=== PATIENT | male | born 1960 | race Two or more races ===

== ENCOUNTER 2025-05-14 17:20 | Inpatient (IN) | payer OTHER ==
[~2025-05-14] VITALS: Ht 172.7 cm; Wt 68.5 kg
--- NOTE | 2025-05-14 19:11 | ED.PDOC ---
History of Present Illness HPI Comments 65 y/o M, with a history of SBO, presents with c/c of intermittent abdominal pain. Patient is a poor historian. Endorses on 3x month history of on-and-off pain. Reports on additional associated symptoms of nausea, vomiting, constipation, poor appetite, and generalized weakness, which started 9x days ago. Denies any bloody or bilious vomitus, diarrhea, urinary symptoms, chest pain, shortness of breath, or further associated symptoms. Chief Complaint: Abdominal Pain Time Seen by MD: 18:30 Reviewed Notes: Nurses Notes, Medications, Allergies Allergies: Coded Allergies: Aspirin (Verified Allergy, Unknown, 05/14/25) Information Source: Patient Mode of Arrival: Ambulatory Severity: Moderate Timing: Months Duration: Intermittent Prehospital treatment: None Past Medical History Past Medical History (Other): SBO Surgical History: Denies all surgeries Family History Family History: Unknown Social History Smoker: Cigarettes Alcohol: Denies ETOH Use Drugs: Denies Drug Use Lives In: Home All Other Systems: Reviewed and Negative (Comprehensive systems review obtained and negative except for what is stated in the HPI.) Physical Exam General Appearance: Moderate Distress HEENT: Normal ENT Inspection, Pharynx Normal, TMs Normal Neck: Full Range of Motion, Non-Tender, Normal, Normal Inspection Respiratory: Chest Non-Tender, Lungs Clear, No Accessory Muscle Use, No Respiratory Distress, Normal Breath Sounds Cardiovascular: No Edema, No JVD, No Murmur, No Gallop, Normal Peripheral Pulses, Regular Rate/Rhythm Breast Exam: Deferred Gastrointestinal: No Organomegaly, Non Tender, No Pulsatile Mass, Normal Bowel Sounds, Soft Genitalia: Deferred Pelvic: Deferred Rectal: Deferred Extremities: No calf tenderness, Normal capillary refill, Non-tender, No pedal edema Musculoskeletal : Apperance: Normal Neurologic: Alert, chairperson anesthesiology II-XII nml as Tested, No Motor Deficits, Normal Affect, Normal Mood, No Sensory Deficits Cerebellar Function: NOT DONE Reflexes: NOT DONE Skin: Dry, Normal Color, Warm Peripheral Pulses: 3+ Radial (R), 3+ Radial (L) Lymphatic: No Adenopathy Was a procedure done? Was a procedure done?: No Differential Dx Considerations may include: Gastritis, gastroenteritis, GERD, cholelithiasis cholecystitis, bowel obstruction, diverticulitis, among others X-Ray, Labs, Meds, VS Vital Signs Date Time Temp Pulse Resp B/P (MAP) Pulse Ox O2 Delivery O2 Flow Rate FiO2 05/14/25 19:33 98.0 88 16 90/60 (70) 95 98.0 05/14/25 17:23 98.1 105 16 98/57 95 98.1 Lab Test 05/14/25 19:11 Range/Units White Blood Count 20.8 H 4.4-10.8 10^3/uL Red Blood Count 4.10 L 4.5-5.90 10^6/uL Hemoglobin 13.6 13.5-17.5 g/dL Hematocrit 38.2 L 41.0-53.0 % Mean Corpuscular Volume 93.1 80.0-100.0 fL Mean Corpuscular Hemoglobin 33.2 H 28.0-32.0 pg Mean Corpuscular Hemoglobin Concent 35.6 32.0-36.0 g/dL Red Cell Distribution Width 12.8 11.8-14.3 % Platelet Count 450 140-450 10^3/uL Mean Platelet Volume 6.9 6.9-10.8 fL Neutrophils (%) (Auto) 82.4 H 37.0-80.0 % Lymphocytes (%) (Auto) 10.3 10.0-50.0 % Monocytes (%) (Auto) 6.2 0.0-12.0 % Eosinophils (%) (Auto) 0.4 0.0-7.0 % Basophils (%) (Auto) 0.7 0.0-2.0 % Neutrophils # (Auto) 17.1 H 1.6-8.6 10 ^3/uL Lymphocytes # (Auto) 2.1 0.4-5.4 10 ^3/uL Monocytes # (Auto) 1.3 0-1.3 10 ^3/uL Eosinophils # (Auto) 0.1 0-0.8 10 ^3/uL Basophils # (Auto) 0.2 0-0.2 10 ^3/uL Nucleated Red Blood Cells 0.1 % Sodium Level 134 L 136-145 mmol/L Potassium Level 3.8 3.5-5.1 mmol/L Chloride Level 87 L 98-107 mmol/L Carbon Dioxide Level 33 H 20-31 mmol/L Anion Gap 14 5-15 Blood Urea Nitrogen 47 H 9-23 mg/dL Creatinine 2.09 H 0.700-1.30 mg/dL Glomerular Filtration Rate Calc 35 >90 mL/min BUN/Creatinine Ratio 22.5 H 10.0-20.0 Serum Glucose 115 H 74-106 mg/dL Calcium Level 9.7 8.7-10.4 mg/dL Current Medications Medications (Trade) Dose Ordered Sig/Taiwo Route Start Time Stop Time Status Last Admin Pantoprazole Sodium (Protonix) 40 mg ONCE ONCE IV 05/14/25 22:15 05/14/25 22:33 DC 05/15/25 01:22 Ceftriaxone Sodium 50 ml @ 100 mls/hr ONCE ONCE IV 05/14/25 22:45 05/14/25 23:14 DC 05/15/25 01:39 Metronidazole 100 ml @ 100 mls/hr ONCE ONCE IV 05/14/25 22:45 05/14/25 23:44 DC 05/15/25 01:22 [place] [id number] Ph: [phone] DIAGNOSTIC IMAGING Diagnostic Imaging Report : [id number] Signed PATIENT: CLAUDIA CONNORS ACCT: [id number] UNIT: [id number] : 1960 LOC: ER ROOM / BED: / AGE / SEX: 65 / M ADM STATUS: REG ER SERVICE 52 ORDERING PHYSICIAN: CLAUDIA JEFFERS MD PROCEDURE(s): ABPL - CT AB PEL WO CON-NO ORAL OR IV REASON: sbo ORDER NUMBER(s): [id number], ACCESSION NUMBER(s): [id number] Exam: CT CT AB PEL WO CON-NO ORAL OR IV History: sbo Comparison Study: None Technique: Multidetector spiral CT of the abdomen was performed from lung bases to pubic symphysis. Imaging was performed without IV contrast. Axial, coronal and sagittal multiplanar reformats were obtained from the axial data set by the technologist. Radiation Dose : 1. Abdomen/Pelvis: CTDIvol 6.32 mGy, DLP 315 mGy*cm. Findings: Evaluation of solid organs is limited due to lack of intravenous contrast use. Lung Bases: Left upper lobe pneumonia. Liver: The liver is normal in size. No focal lesions. Gallbladder and Biliary Tree: Unremarkable Spleen: Unremarkable Pancreas: The pancreas is grossly normal in appearance. Adrenal Glands: Unremarkable Kidneys: Right renal nephrolithiasis without hydronephrosis. Bladder: Grossly unremarkable for degree of distention. Bowel: The stomach is grossly normal in appearance. Multiple abnormally dilated loops of small bowel are seen throughout the abdomen with probable transition point in the lower midline abdomen, suggestive of small-bowel obstruction The appendix is not visualized; however, no secondary findings of acute appendicitis identified. Ascites: Absent Lymphadenopathy: No mesenteric, retroperitoneal or periportal lymphadenopathy. Abdominal Wall and Mesentery: Unremarkable. Vasculature: The visualized abdominal aorta is normal in size and caliber. Evaluation of abdominal and pelvic vessels is limited due to lack of intravenous contrast. Pelvic Organs: Unremarkable Musculoskeletal: No aggressive focal bony lesions, acute fractures or dislocation. Degenerative changes are seen throughout the lumbar spine IMPRESSION: 1. Small-bowel obstruction with probable transition point in the lower midline abdomen. 2. Left upper lobe pneumonia. Radiation optimization: All CT scans at this facility use at least one of these dose optimization techniques: automated exposure control mA and/or kV adjustment per patient size (includes targeted exams where dose is matched to clinical indication) or iterative reconstruction. ATED BY: VINCENZO OGDEN MD DICTATED DATE/TIME: 05/14/251946 SIGNED BY: VINCENZO OGDEN MD SIGNED DATE/TIME: 05/14/251946 CC: Patient alert. Vitals stable. States that his lost lot of weight. Saturation pristine. Continue monitoring. Time of 1ST Reevaluation: 19:00 Reevaluation 1ST: Unchanged Patient Education/Counseling: Diagnosis, Treatment Family Education/Counseling: No Family Present SEPSIS Sepsis Screen Date sepsis recognized/suspect: May 14, 2025 Time Sepsis recognized/suspect: 1723 Recent Procedure: No On Antibiotic Therapy: No Respiratory Rate >20: No Heart Rate >90: Yes Temp<36 C (96.8 F) or >38.3 C: No SBP <90 or MAP <65 mmHG: No New Acute Mental Status Change: No Is the patient on CPAP, BIPAP,: No Physician Orders Ct Ab Pel Wo Con-No Oral Or Iv (05/14/25 18:53) * Surgical Consult (05/14/25 ) Allergies (05/14/25 22:13) Code Status (05/14/25 22:13) Sodium Chloride 0.9% (05/14/25 22:15) Oxygen Per Hour (05/14/25 22:13) Hydrocodone-Acet 5/325mg Tab ([place] (05/14/25 22:15) Ondansetron Hcl (Zofran) (05/14/25 22:15) Complete Blood Count (05/15/25 04:00) Comprehensive Metabolic Panel (05/15/25 04:00) Npo (Nothing By Mouth) Diet (05/15/25 Breakfast) Condition: Serious (05/14/25 22:13) Acetaminophen Tablet (Tylenol Tablet) (05/14/25 22:15) Bedrest With Bathroom Privileg (05/14/25 22:13) Morphine Sulfate Injection (05/14/25 22:15) Sequential Compression Device (05/14/25 ) Pantoprazole (Protonix) (05/15/25 10:00) Ceftriaxone 1gm/50ml (Rocephin) (05/15/25 09:00) Metronidazole 500mg/100ml (Flagyl 500mg/ (05/15/25 06:00) Vital Signs Date Time Temp Pulse Resp B/P (MAP) Pulse Ox O2 Delivery O2 Flow Rate FiO2 05/14/25 19:33 98.0 88 16 90/60 (70) 95 98.0 05/14/25 17:23 98.1 105 16 98/57 95 98.1 Laboratory Tests Test 05/14/25 19:11 White Blood Count 20.8 10^3/uL (4.4-10.8) H Medications Medications Dose Ordered Sig/Taiwo Route Start Time Stop Time Status Last Admin Dose Admin Ceftriaxone Sodium 50 ml @ 100 mls/hr ONCE ONCE IV 05/14/25 22:45 05/14/25 23:14 DC 05/15/25 01:39 Metronidazole 100 ml @ 100 mls/hr ONCE ONCE IV 05/14/25 22:45 05/14/25 23:44 DC 05/15/25 01:22 Pantoprazole Sodium 40 mg ONCE ONCE IV 05/14/25 22:15 05/14/25 22:33 DC 05/15/25 01:22 Departure 1 Departure Time of Disposition: 19:16 Impression: Primary Impression: Failure to thrive Qualified Codes: R62.7 - Adult failure to thrive Disposition: ADMITTED INPATIENT Admit to: Med Surg Condition: Guarded Critical Care Note Critical Care Time?: No Stability Stability form required: No Heart Score Heart Score: Heart Score Response (Comments) Value History N/A 0 EKG N/A 0 Age N/A 0 Risk Factors N/A 0 Troponin N/A 0 Total 0 I personally scribed for CLAUDIA JEFFERS MD ([email or web address]) on 05/14/25 at 19:11. Electronically submitted by Bobby Martinez [email or web address]). I personally scribed for CLAUDIA JEFFERS MD ([email or web address]) on 05/15/25 at 02:45. Electronically submitted by Bobby Martinez [email or web address]). CLAUDIA JEFFERS MD May 14, 2025 19:11
[2025-05-14 19:27] LABS: Hematocrit 38.2 % (41.0-53.0); Mean Corpuscular Volume 93.1 fL (80.0-100.0)
[2025-05-14 19:28] LABS: Hemoglobin 13.6 g/dL (13.5-17.5); Mean Corpuscular Hemoglobin 33.2 pg (28.0-32.0); Nucleated Red Blood Cells % 0.1 %
[2025-05-14 19:38] LABS: Potassium 3.8 mmol/L (3.5-5.1)
[2025-05-14 19:39] LABS: Anion Gap 14 (5-15); Calcium 9.7 mg/dL (8.7-10.4)
[2025-05-14 19:41] LABS: Carbon Dioxide 33 mmol/L (20-31); Chloride 87 mmol/L (98-107); Sodium 134 mmol/L (136-145)
[2025-05-14 19:44] LABS: BUN/Creatinine Ratio 22.5 (10.0-20.0)
[2025-05-14 19:47] LABS: Blood Urea Nitrogen 47 mg/dL (9-23); Glucose 115 mg/dL (74-106)
--- NOTE | 2025-05-14 19:49 | DVH ---
Exam: CT CT AB PEL WO CON-NO ORAL OR IV History: sbo Comparison Study: None Technique: Multidetector spiral CT of the abdomen was performed from lung bases to pubic symphysis. Imaging was performed without IV contrast. Axial, coronal and sagittal multiplanar reformats were ob tained from the axial data set by the technologist. Radiation Dose : 1. Abdomen/Pelvis: CTDIvol 6.32 mGy, DLP 315 mGy*cm. Findings: Evaluation of solid organs is limited due to lack of intravenous contrast use. Lung Bases: Left upper lobe pneumonia. Liver: The liver is normal in size. No focal lesions. Gallbladder and Biliary Tree: Unremarkable Spleen: Unremarkable Pancreas: The pancreas is grossly normal in appearance. Adrenal Glands: Unremarkable Kidneys: Right renal nephrolithiasis without hydronephrosis. Bladder: Grossly unremarkable for degree of distention. Bowel: The stomach is grossly normal in appearance. Multiple abnormally dilated loops of small bowel are seen throughout the abdomen with probable transition point in the lower midline abdomen, suggesti ve of small-bowel obstruction The appendix is not visualized; however, no secondary findings of acut e appendicitis identified. Ascites: Absent Lymphadenopathy: No mesenteric, retroperitoneal or periportal lymphadenopathy. Abdominal Wall and Mesentery: Unremarkable. Vasculature: The visualized abdominal aorta is normal in size and caliber. Evaluation of abdominal a nd pelvic vessels is limited due to lack of intravenous contrast. Pelvic Organs: Unremarkable Musculoskeletal: No aggressive focal bony lesions, acute fractures or dislocation. Degenerative barker es are seen throughout the lumbar spine IMPRESSION: 1. Small-bowel obstruction with probable transition point in the lower midline abdomen. 2. Left upper lobe pneumonia. Radiation optimization: All CT scans at this facility use at least one of these dose optimization sage hniques: automated exposure control mA and/or kV adjustment per patient size (includes targeted exam s where dose is matched to clinical indication) or iterative reconstruction.
[2025-05-14] MEDS ORDERED: HYDROcodone-ACET 5/325MG TAB PO PRN (22:15)
[2025-05-14] MEDS: SODIUM CHLORIDE 0.9% 1,000 ML IV SCH (23:16)
--- NOTE | 2025-05-14 23:24 | DVHHP2 ---
History of Present Illness Reason for Visit: Small-bowel obstruction History of Present Illness The patient is a 65-year-old male with past medical history of small-bowel obstruction who presented to [facility] ED with complaint of abdominal pain for the past 3 months. Patient reports he has been experiencing intermittent abdominal pain, associated with nausea, vomiting, constipation, poor appetite, and generalized weakness. Patient was seen and evaluated in the ED, laboratory data shows WBC 20.8, platelets 450, sodium 134, potassium 3.8, BUN 47, creatinine 2.09, glucose 115, calcium 9.7, blood pressure 90/60, heart rate 88, temperature 98.0 F, O2 saturation 96% on room air. Abdomen/pelvis CT revealing small bowel obstruction with probable transition point in the lower midline abdomen, left upper lobe pneumonia. Please see medication orders section in the computer. On my assessment, patient denied chest pain, no headache, no dizziness, no shortness of breaths, no diarrhea, nausea, vomiting, fever, no chills. Patient was admitted for further evaluation and medical management. Past Medical History Small-bowel obstruction Past Surgical History Denies all surgeries Family History Reviewed, noncontributory to the management of this case. Past Social History The patient lives at home, denies smoking, alcohol or illicit drugs abuse. Review of Systems Constitutional: Yes: Weakness; No: Fever, Chills, Sweats, Malaise, Other Eyes: No: Pain, Vision change, Conjunctivae inflammation, Eyelid inflammation, Other, Redness ENT: No: Ear pain, Ear discharge, Nose pain, Nose discharge, Nose congestion, Mouth pain, Mouth swelling, Throat pain, Throat swelling, Other Respiratory: No: Cough, Dry, Shortness of breath, SOB with excertion, Wheezing, Hemoptysis, Pleuritic Pain, Sputum, Wheezing, Other Cardiovascular: No: Chest Pain, Palpitations, Orthopnea, Paroxysmal Noc. Dyspnea, Edema, Lt Headedness, Other Gastrointestinal: Nausea, Abdominal Pain; No: Vomiting, Diarrhea, Constipation, Melena, Hematochezia, Other Genitourinary: No Dysuria, No Frequency, No Incontinence, No Hematuria, No Retention, No Other Musculoskeletal: No: other, neck pain, shoulder pain, arm pain, back pain, hand pain, leg pain, foot pain Skin: No: Rash, Lesions, Jaundice, Bruising, Other Neurological: No: Weakness, Numbness, Incoordination, Change in speech, Confusion, Seizures, Other Allergies: Coded Allergies: Aspirin (Verified Allergy, Unknown, 05/14/25) Medications Current Medications Medications Dose Ordered Sig/Taiwo Route Start Time Stop Time Status Last Admin Dose Admin Sodium Chloride 1,000 ml @ 60 mls/hr [id number] IV 05/14/25 22:15 Acetaminophen/ Hydrocodone Bitart 1 tab Q4HP PRN PO 05/14/25 22:15 Ondansetron HCl 4 mg Q4HP PRN IV 05/14/25 22:15 Acetaminophen 650 mg Q6HP PRN PO 05/14/25 22:15 Morphine Sulfate 2 mg Q4HPRN PRN IV 05/14/25 22:15 Pantoprazole Sodium 40 mg DAILY IV 05/15/25 10:00 Ceftriaxone Sodium 50 ml @ 100 mls/hr DAILY@09 IV 05/15/25 09:00 Metronidazole 100 ml @ 100 mls/hr Q8HR IV 05/15/25 06:00 Exam Vital Signs Vital Signs Date Time Temp Pulse Resp B/P (MAP) Pulse Ox O2 Delivery O2 Flow Rate FiO2 05/14/25 19:33 98.0 88 16 90/60 (70) 95 98.0 General Appearance: Alert, Oriented X3, Cooperative, No acute distress HEENT: Atraumatic, PERRLA, EOMI, Mucous membr. moist/pink Respiratory: Normal air movement Cardiovascular: Regular rate, Normal S1, Normal S2, No murmurs Abdominal: Normal bowel sounds, Soft, No hepatospenomegaly, No masses, Other (Reports tenderness) Extremities: No clubbing, No cyanosis, No edema, Normal pulses, No tenderness/swelling Skin: No rashes, No breakdown, No significant lesion Neuro: Normal speech, Normal tone, Sensation intact, Cranial nerves 3-12 NL, Reflexes 2+, Other (Generalized weakness) Psych/Mental Status: Mental status NL, Mood NL Labs/Xrays Labs Test 05/14/25 19:11 Range/Units White Blood Count 20.8 H 4.4-10.8 10^3/uL Red Blood Count 4.10 L 4.5-5.90 10^6/uL Hemoglobin 13.6 13.5-17.5 g/dL Hematocrit 38.2 L 41.0-53.0 % Mean Corpuscular Volume 93.1 80.0-100.0 fL Mean Corpuscular Hemoglobin 33.2 H 28.0-32.0 pg Mean Corpuscular Hemoglobin Concent 35.6 32.0-36.0 g/dL Red Cell Distribution Width 12.8 11.8-14.3 % Platelet Count 450 140-450 10^3/uL Mean Platelet Volume 6.9 6.9-10.8 fL Neutrophils (%) (Auto) 82.4 H 37.0-80.0 % Lymphocytes (%) (Auto) 10.3 10.0-50.0 % Monocytes (%) (Auto) 6.2 0.0-12.0 % Eosinophils (%) (Auto) 0.4 0.0-7.0 % Basophils (%) (Auto) 0.7 0.0-2.0 % Neutrophils # (Auto) 17.1 H 1.6-8.6 10 ^3/uL Lymphocytes # (Auto) 2.1 0.4-5.4 10 ^3/uL Monocytes # (Auto) 1.3 0-1.3 10 ^3/uL Eosinophils # (Auto) 0.1 0-0.8 10 ^3/uL Basophils # (Auto) 0.2 0-0.2 10 ^3/uL Nucleated Red Blood Cells 0.1 % Sodium Level 134 L 136-145 mmol/L Potassium Level 3.8 3.5-5.1 mmol/L Chloride Level 87 L 98-107 mmol/L Carbon Dioxide Level 33 H 20-31 mmol/L Anion Gap 14 5-15 Blood Urea Nitrogen 47 H 9-23 mg/dL Creatinine 2.09 H 0.700-1.30 mg/dL Glomerular Filtration Rate Calc 35 >90 mL/min BUN/Creatinine Ratio 22.5 H 10.0-20.0 Serum Glucose 115 H 74-106 mg/dL Calcium Level 9.7 8.7-10.4 mg/dL PATIENT: CLAUDIA CONNORS ACCT: [id number] UNIT: [id number] : 1960 LOC: ER ROOM / BED: / AGE / SEX: 65 / M ADM STATUS: REG ER SERVICE 1470 ORDERING PHYSICIAN: CLAUDIA JEFFERS MD PROCEDURE(s): ABPL - CT AB PEL WO CON-NO ORAL OR IV REASON: sbo ORDER NUMBER(s): [id number], ACCESSION NUMBER(s): [id number] Exam: CT CT AB PEL WO CON-NO ORAL OR IV History: sbo Comparison Study: None Technique: Multidetector spiral CT of the abdomen was performed from lung bases to pubic symphysis. Imaging was performed without IV contrast. Axial, coronal and sagittal multiplanar reformats were obtained from the axial data set by the technologist. Radiation Dose: 1. Abdomen/Pelvis: CTDIvol 6.32 mGy, DLP 315 mGy*cm. Findings: Evaluation of solid organs is limited due to lack of intravenous contrast use. Lung Bases: Left upper lobe pneumonia. Liver: The liver is normal in size. No focal lesions. Gallbladder and Biliary Tree: Unremarkable Spleen: Unremarkable Pancreas: The pancreas is grossly normal in appearance. Adrenal Glands: Unremarkable Kidneys: Right renal nephrolithiasis without hydronephrosis. Bladder: Grossly unremarkable for degree of distention. Bowel: The stomach is grossly normal in appearance. Multiple abnormally dilated loops of small bowel are seen throughout the abdomen with probable transition point in the lower midline abdomen, suggestive of small-bowel obstruction The appendix is not visualized; however, no secondary findings of acute appendicitis identified. Ascites: Absent Lymphadenopathy: No mesenteric, retroperitoneal or periportal lymphadenopathy. Abdominal Wall and Mesentery: Unremarkable. Vasculature: The visualized abdominal aorta is normal in size and caliber. Evaluation of abdominal and pelvic vessels is limited due to lack of intravenous contrast. Pelvic Organs: Unremarkable Musculoskeletal: No aggressive focal bony lesions, acute fractures or disl ocation. Degenerative changes are seen throughout the lumbar spine IMPRESSION: 1. Small-bowel obstruction with probable transition point in the lower midline abdomen. 2. Left upper lobe pneumonia. SEPSIS Sepsis Screen Date sepsis recognized/suspect: May 14, 2025 Time Sepsis recognized/suspect: 1723 Recent Procedure: No On Antibiotic Therapy: No Respiratory Rate >20: No Heart Rate >90: Yes Temp<36 C (96.8 F) or >38.3 C: No SBP <90 or MAP <65 mmHG: No New Acute Mental Status Change: No Is the patient on CPAP, BIPAP,: No Physician Orders Ct Ab Pel Wo Con-No Oral Or Iv (05/14/25 18:53) * Surgical Consult (05/14/25 ) Allergies (05/14/25 22:13) Code Status (05/14/25 22:13) Sodium Chloride 0.9% (05/14/25 22:15) Oxygen Per Hour (05/14/25 22:13) Hydrocodone-Acet 5/325mg Tab ([place] (05/14/25 22:15) Ondansetron Hcl (Zofran) (05/14/25 22:15) Complete Blood Count (05/15/25 04:00) Comprehensive Metabolic Panel (05/15/25 04:00) Npo (Nothing By Mouth) Diet (05/15/25 Breakfast) Condition: Serious (05/14/25 22:13) Acetaminophen Tablet (Tylenol Tablet) (05/14/25 22:15) Bedrest With Bathroom Privileg (05/14/25 22:13) Morphine Sulfate Injection (05/14/25 22:15) Sequential Compression Device (05/14/25 ) Pantoprazole (Protonix) (05/15/25 10:00) Ceftriaxone 1gm/50ml (Rocephin) (05/15/25 09:00) Metronidazole 500mg/100ml (Flagyl 500mg/ (05/15/25 06:00) Metronidazole 500mg/100ml (Flagyl 500mg/ (05/14/25 22:45) Vital Signs Date Time Temp Pulse Resp B/P (MAP) Pulse Ox O2 Delivery O2 Flow Rate FiO2 05/14/25 19:33 98.0 88 16 90/60 (70) 95 98.0 05/14/25 17:23 98.1 105 16 98/57 95 98.1 Laboratory Tests Test 05/14/25 19:11 White Blood Count 20.8 10^3/uL (4.4-10.8) H Assessment/Plan Assessment/Plan Acute abdominal pain Small-bowel obstruction Leukocytosis, unspecified Pneumonia, unspecified organism Generalized weakness Plan 1. Admit to telemetry unit 2. Breathing treatment 3. Pain control management 4. IV antibiotic management 5. Management of fluids and electrolytes 6. Consultation for surgery/hospitalist 7. Diagnostic test abdomen/pelvis CT 8. DVT prophylaxis-on SCDs 9. Repeat labs CBC, CMP in a.m. 10. Home medication reviewed and reconciled 11. Continue with current medical management 12. Treatment plan discussed with patient and RN. Patient verbalized understanding. Plan discussed with: Patient, Other (RN) My Orders Orders - DHAVAL PERDOMO DNP Procedure Category Date Status Time * Surgical Consult CONS 05/14/25 Transmitted Allergies SAMUEL 05/14/25 In Process 22:13 Code Status CODE 05/14/25 Transmitted 22:13 Sodium Chloride 0.9% PHA 05/14/25 In Process 22:15 Oxygen Per Hour RT 05/14/25 Transmitted 22:13 Hydrocodone-Acet PHA 05/14/25 In Process 5/325mg Tab ([place] 22:15 Ondansetron Hcl PHA 05/14/25 In Process (Zofran) 22:15 Complete Blood Count LAB 05/15/25 Verified 04:00 Comprehensive LAB 05/15/25 Verified Metabolic Panel 04:00 Npo (Nothing By DIET 05/15/25 Transmitted Mouth) Diet Breakfast Condition: Serious SAMUEL 05/14/25 In Process 22:13 Acetaminophen Tablet PHA 05/14/25 In Process (Tylenol Tablet) 22:15 Bedrest With Bathroom SAMUEL 05/14/25 In Process Privileg 22:13 Morphine Sulfate PHA 05/14/25 In Process Injection 22:15 Sequential SAMUEL 05/14/25 In Process Compression Device Pantoprazole PHA 05/15/25 In Process (Protonix) 10:00 Ceftriaxone 1gm/50ml PHA 05/15/25 In Process (Rocephin) 09:00 Metronidazole PHA 05/15/25 In Process 500mg/100ml (Flagyl 06:00 Metronidazole PHA 05/14/25 In Process 500mg/100ml (Flagyl 22:45 Problem List: (1) Acute abdominal pain (2) Small bowel obstruction (3) Leukocytosis, unspecified (4) Pneumonia, unspecified organism (5) Generalized weakness Date of Service: May 14, 2025 Billing Provider: DHAVAL PERDOMO DNP Common Visit Codes: 69965-SROICSD INP/OBS CARE (HIGH) DHAVAL PERDOMO DNP May 14, 2025 23:24
[2025-05-14] MEDS ORDERED: MORPHINE SULFATE INJ 2 MG/ml SYRG IV PRN (23:30)
[2025-05-14] MEDS ORDERED: NITROGLYCERIN 0.4 MG SL TAB SL PRN (23:30)
[2025-05-14 23:53] VITALS: PULSE 86; RESP 16; O2SAT 95
[2025-05-15] VITALS (23 sets, daily range): BP systolic 84–136; BP diastolic 49–89; PULSE 54–90; RESP 10–20; TEMP 97.7–98.1; O2SAT 87–100
[2025-05-15] MEDS: PANTOPRAZOLE 40 MG/10 ML VIAL INJ IV ONE (01:22)
[2025-05-15 04:05] LABS: Alanine Aminotransferase 15 U/L (7-40); Albumin 3.7 g/dL (3.2-4.8); Alkaline Phosphatase 60 U/L (46-116); Anion Gap 16 (5-15); BUN/Creatinine Ratio 17.7 (10.0-20.0); Calcium 9.0 mg/dL (8.7-10.4); Carbon Dioxide 29 mmol/L (20-31); Glucose 103 mg/dL (74-106); Total Protein 6.2 g/dL (5.7-8.2)
[2025-05-15 04:06] LABS: Hematocrit 35.8 % (41.0-53.0); Hemoglobin 12.2 g/dL (13.5-17.5); Mean Corpuscular Hemoglobin 32.8 pg (28.0-32.0); Mean Corpuscular Volume 95.9 fL (80.0-100.0); Nucleated Red Blood Cells % 0.0 %
[2025-05-15 04:07] LABS: Bilirubin, Total 0.3 mg/dL (0.2-1.0); Blood Urea Nitrogen 39 mg/dL (9-23); Chloride 89 mmol/L (98-107); Potassium 3.4 mmol/L (3.5-5.1); Sodium 134 mmol/L (136-145)
[2025-05-15] MEDS: SODIUM CHLORIDE 0.9% 500 ML IV ONE (04:15)
[2025-05-15] MEDS: NOREPINEPHRINE 8 MG/250ML KIT 250 ML IV SCH (07:15)
[2025-05-15] MEDS: NOREPINEPHRINE 8 MG/250ML KIT 250 ML IV ONE (07:28)
[2025-05-15] MEDS: AZITHROMYCIN 500MG/ 250ML 250 ML IV ONE (07:57)
[2025-05-15] MEDS: PANTOPRAZOLE 40 MG/10 ML VIAL INJ IV SCH (08:16)
--- NOTE | 2025-05-15 10:41 | DVH ---
INDICATION: RULE OUT CARDIOPULMONARY DX TECHNIQUE: Frontal view of the chest. COMPARISON: None FINDINGS: . The heart and mediastinal contours are grossly unremarkable. There is no evidence of pleural disea se. The lungs are clear. The bony structures of the chest are intact without fracture. IMPRESSION: 1. Mild pulmonary edema
[2025-05-15 11:19] LABS: INR 0.97 (0.9-1.15); Partial Thromboplastin Time 28.0 SEC (24.5-34.5); Prothrombin Time 10.3 sec (9.3-11.8)
--- NOTE | 2025-05-15 11:40 | DVHINCON2 ---
Date of service: May 15, 2025 Allergies: Coded Allergies: Aspirin (Verified Allergy, Unknown, 05/14/25) Current Medications Current Medications Medications (Trade) Dose Ordered Sig/Taiwo Route PRN Reason Start Time Stop Time Status Last Admin Sodium Chloride 1,000 ml @ 60 mls/hr [id number] IV 05/14/25 22:15 05/15/25 10:20 DC Acetaminophen/ Hydrocodone Bitart ([place] 5/325MG Tab) 1 tab Q4HP PRN PO MODERATE PAIN (4-6 PAIN SCALE) 05/14/25 22:15 Ondansetron HCl (Zofran) 4 mg Q4HP PRN IV NAUSEA / VOMITING 05/14/25 22:15 Acetaminophen (Tylenol Tablet) 650 mg Q6HP PRN PO PAIN SCALE 1-3 OR TEMP>100.4 05/14/25 22:15 Morphine Sulfate 2 mg Q4HPRN PRN IV SEVERE PAIN (7-10 PAIN SCALE) 05/14/25 22:15 Pantoprazole Sodium (Protonix) 40 mg DAILY IV 05/15/25 10:00 05/15/25 08:16 Ceftriaxone Sodium 50 ml @ 100 mls/hr DAILY@09 IV 05/15/25 09:00 05/15/25 08:16 Metronidazole 100 ml @ 100 mls/hr Q8HR IV 05/15/25 06:00 05/15/25 05:55 Nitroglycerin (Ntrostat Sublingual) 0.4 mg Q5MINP PRN SL FOR CHEST PAIN 05/14/25 23:30 05/15/25 10:07 DC Morphine Sulfate 2 mg Q30M PRN IV FOR CHEST PAIN 05/14/25 23:30 05/15/25 10:07 DC Azithromycin 250 ml @ 125 mls/hr DAILY IV 05/16/25 10:00 Norepinephrine Bitartrate 250 ml @ 3.75 mls/hr Q24H IV 05/15/25 07:15 05/15/25 07:15 Sodium Chloride 1,000 ml @ 100 mls/hr Q10H IV 05/15/25 10:30 Vital Signs Vital Signs Date Time Temp Pulse Resp B/P (MAP) Pulse Ox O2 Delivery O2 Flow Rate FiO2 05/15/25 09:36 78 14 100 Nasal Cannula* 2 28 05/15/25 09:36 98.0 121/74 (90) 98.0 Labs/Diagnostic Data Labs Test 05/15/25 10:34 05/15/25 02:58 Range/Units Prothrombin Time 10.3 9.3-11.8 sec Prothrombin Time INR 0.97 0.9-1.15 Activated Partial Thromboplast Time 28.0 24.5-34.5 SEC Hemoglobin A1c 5.2 <5.7 % A1C Lactic Acid Level 0.9 0.4-2.0 mmol/L Thyroid Stimulating Hormone (TSH) 1.25 0.55-4.78 uIU/mL White Blood Count 18.9 H 4.4-10.8 10^3/uL Red Blood Count 3.73 L 4.5-5.90 10^6/uL Hemoglobin 12.2 L 13.5-17.5 g/dL Hematocrit 35.8 L 41.0-53.0 % Mean Corpuscular Volume 95.9 80.0-100.0 fL Mean Corpuscular Hemoglobin 32.8 H 28.0-32.0 pg Mean Corpuscular Hemoglobin Concent 34.2 32.0-36.0 g/dL Red Cell Distribution Width 12.8 11.8-14.3 % Platelet Count 376 140-450 10^3/uL Mean Platelet Volume 6.5 L 6.9-10.8 fL Neutrophils (%) (Auto) 81.2 H 37.0-80.0 % Lymphocytes (%) (Auto) 10.3 10.0-50.0 % Monocytes (%) (Auto) 7.9 0.0-12.0 % Eosinophils (%) (Auto) 0.4 0.0-7.0 % Basophils (%) (Auto) 0.2 0.0-2.0 % Neutrophils # (Auto) 15.4 H 1.6-8.6 10 ^3/uL Lymphocytes # (Auto) 2.0 0.4-5.4 10 ^3/uL Monocytes # (Auto) 1.5 H 0-1.3 10 ^3/uL Eosinophils # (Auto) 0.1 0-0.8 10 ^3/uL Basophils # (Auto) 0 0-0.2 10 ^3/uL Nucleated Red Blood Cells 0.0 % Sodium Level 134 L 136-145 mmol/L Potassium Level 3.4 L 3.5-5.1 mmol/L Chloride Level 89 L 98-107 mmol/L Carbon Dioxide Level 29 20-31 mmol/L Anion Gap 16 H 5-15 Blood Urea Nitrogen 39 H 9-23 mg/dL Creatinine 2.20 H 0.700-1.30 mg/dL Glomerular Filtration Rate Calc 33 >90 mL/min BUN/Creatinine Ratio 17.7 10.0-20.0 Serum Glucose 103 74-106 mg/dL Calcium Level 9.0 8.7-10.4 mg/dL Total Bilirubin 0.3 0.2-1.0 mg/dL Aspartate Amino Transferase (AST) 16 13-40 U/L Alanine Aminotransferase (ALT) 15 7-40 U/L Alkaline Phosphatase 60 46-116 U/L Total Protein 6.2 5.7-8.2 g/dL Albumin 3.7 3.2-4.8 g/dL Assessment 65 YEAR OLD MALE WITH PROTRACTED HISTORY OF REPEAT BOUTS OF ABDOMINAL PAIN AND NAUSEA( TAKE A"LOT OF NORCO" DUE TO BACK AND HIP PAIN. LAST BOWEL MOVEMENT :FEW DAYS AGO, IS PASSING FLATUS, HAS HAD NO NAUSEA OR VOMITING. ABDOMEN IS SOFT, MINIMALLY TENDER, PALPABLE FIRM MASS(MOST LIKELY MASH FROM PRIOR VENTRAL HERNIA REPAIR) IN THE SUPRAUMBILICAL AREA. WILL ORDER GASTROGRAFIN BOWEL SERIES, HIS LEUKOCYTOSIS IS MOST LIKELY DUE TO THE PNEUMONIA DOCUMENTED ON IMAGING (RECOMMEND PULMONOLOGY CONSULT). NO INDICATION FOR EMERGENCY SURGICAL INTERV ENTION Plan discussed with: Patient FERNANDA SHEN MD May 15, 2025 11:40
[2025-05-15 11:50] LABS: Urine Protein, UAD TRACE (Negative)
[2025-05-15 12:06] LABS: Cocaine Screen, Urine Neg (NEGATIVE)
[2025-05-15 12:10] LABS: Amphetamine Screen, Urine Neg (NEGATIVE); Barbiturate Scree,Urine Neg (NEGATIVE); Benzodiazephine Screen, Urine Neg (NEGATIVE); Cannabinoid Screen, Urine Neg (NEGATIVE); Opiate Scree,Urine Pos (NEGATIVE); Phencyclidine Screen, Urine Neg (NEGATIVE)
--- NOTE | 2025-05-15 12:52 | DVHPNRES ---
Progress Note Date Seen: May 15, 2025 Resident Creating Document: YOJANA MATOS RESIDENT Medical Necessity Reason Pt with a Central, PICC or Fol: Yes The following are medically ne: Central Line Subjective Review of Systems This is a 65-year-old male with past medical history of recurrent small-bowel obstruction and hospitalization, umbilical hernia repair with mesh 10 years ago, bilateral leg edema came to ER with a complaint of abdominal pain for last 3 months. Patient experienced similar symptoms associated with nausea, vomiting. But last few days patient's symptoms worsen and vomiting and abdominal pain for last 5 days which is worsen day by day. Abdominal pain pain is 8/10, intermittent, spasmodic, no aggravating or relieving factor and associated with loss of appetite, intentional weight loss more than 200 lb last year. Patient took [place] for his left hip pain and bilateral leg pain. During admission, patient blood pressure was low and started Levophed in ER. As per patient, his primary care prescribed him senna 5 tablets per day which is not working. Past medical history: Recurrent small-bowel obstruction without surgical intervention, bilateral leg edema Surgical history: Umbilical hernia repair with mesh 10 years ago Family history: Nothing contributory Social history: Cigarette smoke 1 pack per day for 30 years, denies any illicit drug or EtOH use Allergy: Aspirin PCP:Dr. Timmons Home medication: Nabumetone, [place], senna, vitamin D3, vitamin B12, baclofen, furosemide. Objective vital signs Vital Sign Date Time Temp Pulse Resp B/P (MAP) Pulse Ox O2 Delivery O2 Flow Rate FiO2 05/15/25 11:52 88/45 05/15/25 11:30 53 12 100 05/15/25 09:36 Nasal Cannula* 2 28 05/15/25 09:36 98.0 98.0 medications Current Medications Medications Dose Ordered Sig/Taiwo Route Start Time Stop Time Status Last Admin Dose Admin Acetaminophen/ Hydrocodone Bitart 1 tab Q4HP PRN PO 05/14/25 22:15 Ondansetron HCl 4 mg Q4HP PRN IV 05/14/25 22:15 Acetaminophen 650 mg Q6HP PRN PO 05/14/25 22:15 Morphine Sulfate 2 mg Q4HPRN PRN IV 05/14/25 22:15 Pantoprazole Sodium 40 mg DAILY IV 05/15/25 10:00 05/15/25 08:16 40 MG Ceftriaxone Sodium 50 ml @ 100 mls/hr DAILY@09 IV 05/15/25 09:00 05/15/25 08:16 100 MLS/HR Metronidazole 100 ml @ 100 mls/hr Q8HR IV 05/15/25 06:00 05/15/25 05:55 100 MLS/HR Azithromycin 250 ml @ 125 mls/hr DAILY IV 05/16/25 10:00 Norepinephrine Bitartrate 250 ml @ 3.75 mls/hr Q24H IV 05/15/25 07:15 05/15/25 07:15 3.75 MLS/HR Sodium Chloride 1,000 ml @ 100 mls/hr Q10H IV 05/15/25 10:30 Examination Constitutional: Yes: Weakness; No: Fever, Chills, Sweats, Malaise Eyes: No: Pain, Vision change, Conjunctivae inflammation ENT: No: Ear pain, Ear discharge, Nose pain, Nose discharge Respiratory: No: Cough, Dry, Shortness of breath, SOB with excertion, Wheezing, Hemoptysis Cardiovascular: No: Chest Pain, Palpitations, ,Dyspnea, mild edema bilateral leg Gastrointestinal: Abdominal Pain on deep palpation, bowel sounds present Genitourinary: No Dysuria, No Frequency, No Incontinence, Musculoskeletal: No: other, neck pain, shoulder pain, arm pain Skin: No: Rash, Lesions, Jaundice, Bruising, Other Neurological: No: Weakness, Numbness, Incoordination, Change in speech laboratory and microbiology Laboratory Tests 05/15/25 02:58 Test 05/15/25 02:58 Range/Units Serum Glucose 103 74-106 mg/dL Problem List/Assessment/Plan Problem List/Assessment/Plan This is a 65-year-old male with past medical history of recurrent small-bowel obstruction and hospitalization, bilateral leg edema came to ER with a complaint of abdominal pain for last 3 months. Patient experienced similar symptoms associated with nausea, vomiting. But last few days patient's symptoms worsen and vomiting and abdominal pain for last 5 days which is worsen day by day. Abdominal pain pain is 8/10, intermittent, spasmodic, no aggravating or relieving factor and associated with loss of appetite, intentional weight loss more than 200 lb last year. Patient took [place] for his left hip pain and bilateral leg pain. During admission, patient blood pressure was low and started Levophed in ER. NEUROLOGY Patient AOx4 RASS-0 CARDIOVASCULAR: Bilateral leg edema * No no cardiac history. * Plan: Furosemide -home meds, echocardiogram PULMONARY: Gram-positive/Gram-negative pneumonia Mild pulmonary edema * CT abdomen shows: Left upper lobe pneumonia * CXR; mild pulmonary edema * Lower leg venous Doppler on 06/17/2019: No sonographic evidence for deep venous thrombosis in the right lower extremity deep veins although evaluation was made difficult due to the patient's body habitus. Subcutaneous edema present in the right calf. * Plan: cont. IV antibiotic. GASTROINTESTINAL: Small-bowel obstruction Septic shock ?due to acute bowel obstruction * CT abdomen and pelvis; small bowel obstruction with probable transition point in the lower midline abdomen * Plan: NPO, IV antibiotic, IVF, NG placement. Surgical recommended no surgical intervention at this time, Gastrografin bowel series. GENITOURINARY: Complicated cystitis NIKKI due to vasomotor nephropathy Hyponatremia * UA- turbid, LE 1+, bacteria many * Serum creatinine 2.20, unknown baseline * Avoid nephrotoxic drugs * Plan: IVF, post voidal bladder scan.urine culture will follow. HEMATOLOGY: Leukocytosis * Plan: monitor CBC METABOLIC: * Nothing contributory * Plan: THS 1.25, hemoglobin A1c 5.2 INFECTIOUS DISEASE: Sepsis due to acute bowel obstruction Sepsis Gram-positive /Gram-negative pneumonia/UTI * CT scan shows left upper lobe pneumonia * CT abdomen and pelvis shows small bowel obstruction * Plan: Discontinue metronidazole, ceftriaxone and start Zosyn on 05/15/2025. Musculature skeletal and skin * Chronic skin changes bilateral lower extremity likely venous stasis * plan: monitor for skin breakdown. DIET: IVF DVT prophylax: SCDs GI prophylaxis: Protonix Bowel regimen: On hold Code status: Full code LINES/DRAINS/ACCESS: right IJ IV access: Peripheral IV line Drips: Levophed Healy catheter: None DISPOSITION: ICU Patient's status discussed with patient and nurse Critical care time spent more than 81 minutes, including patient care, chart review. Excluding any procedures Case discussed with Dr. Wills Plan discussed with: Patient, Other (Nurse) My Orders My Orders Orders - YOJANA MATOS RESIDENT Procedure Category Date Status Time Magnesium LAB 05/16/25 Verified 04:00 Blood Culture ROSIO 05/15/25 In Process 10:08 Chest Portable XY 05/15/25 Resulted 10:08 Sodium Chloride 0.9% PHA 05/15/25 In Process 10:30 Date of Service: May 15, 2025 Billing Provider: CHERELLE WILLS MD Common Visit Codes: 16568-[id number] CARE 30-74 MIN, [id number] CARE-EACH +30MIN YOJANA MATOS RESIDENT May 15, 2025 12:52 CHERELLE WILLS MD May 16, 2025 14:28
--- NOTE | 2025-05-15 16:35 | DVH ---
Procedure: XY SMALL BOWEL SERIES-W GASTROGRA Reason for study/Clinical History: R/O OBSTRUCTION Comparison Study: None Technique: Single contrast small bowel series performed. FINDINGS/IMPRESSION: Initial rn advice view of the abdomen and pelvis appears demonstrates abnormal nonspecific bowel-gas izzy yaritza. Contrast is not identified within the colon by 4 hours. This represents abnormal transit time possib ly small-bowel obstruction. Repeat KUB can be obtained in 12 hours to assess 4th further transit of enteric contrast if clinicall y indicated.
[2025-05-15] MEDS: diphenhdrAMINE HCL 50 MG/1 ML VL IV ONE (18:40)
[2025-05-15] MEDS: SODIUM CHLORIDE 0.9% 1,000 ML IV SCH (19:00)
[2025-05-15] MEDS: ONDANSETRON HCL 4 MG/2 ML VIAL IV PRN (19:01)
[2025-05-15] MEDS: diphenhdrAMINE HCL 50 MG/1 ML VL ONE (19:03)
--- NOTE | 2025-05-15 19:36 | DVHINCON2 ---
Date of service: May 15, 2025 Allergies: Coded Allergies: Aspirin (Verified Allergy, Unknown, 05/14/25) Current Medications Current Medications Medications (Trade) Dose Ordered Sig/Taiwo Route PRN Reason Start Time Stop Time Status Last Admin Sodium Chloride 1,000 ml @ 60 mls/hr [id number] IV 05/14/25 22:15 05/15/25 10:20 DC Acetaminophen/ Hydrocodone Bitart ([place] 5/325MG Tab) 1 tab Q4HP PRN PO MODERATE PAIN (4-6 PAIN SCALE) 05/14/25 22:15 05/15/25 16:24 DC Ondansetron HCl (Zofran) 4 mg Q4HP PRN IV NAUSEA / VOMITING 05/14/25 22:15 05/15/25 19:01 Acetaminophen (Tylenol Tablet) 650 mg Q6HP PRN PO PAIN SCALE 1-3 OR TEMP>100.4 05/14/25 22:15 Morphine Sulfate 2 mg Q4HPRN PRN IV SEVERE PAIN (7-10 PAIN SCALE) 05/14/25 22:15 Pantoprazole Sodium (Protonix) 40 mg DAILY IV 05/15/25 10:00 05/15/25 08:16 Ceftriaxone Sodium 50 ml @ 100 mls/hr DAILY@09 IV 05/15/25 09:00 05/15/25 08:16 Metronidazole 100 ml @ 100 mls/hr Q8HR IV 05/15/25 06:00 05/15/25 14:21 Nitroglycerin (Ntrostat Sublingual) 0.4 mg Q5MINP PRN SL FOR CHEST PAIN 05/14/25 23:30 05/15/25 10:07 DC Morphine Sulfate 2 mg Q30M PRN IV FOR CHEST PAIN 05/14/25 23:30 05/15/25 10:07 DC Azithromycin 250 ml @ 125 mls/hr DAILY IV 05/16/25 10:00 05/15/25 12:58 DC Norepinephrine Bitartrate 250 ml @ 3.75 mls/hr Q24H IV 05/15/25 07:15 05/15/25 07:15 Sodium Chloride 1,000 ml @ 100 mls/hr Q10H IV 05/15/25 10:30 Vital Signs Vital Signs Date Time Temp Pulse Resp B/P (MAP) Pulse Ox O2 Delivery O2 Flow Rate FiO2 05/15/25 16:27 15 95 Room Air* 0 21 05/15/25 16:27 97.7 88 125/71 (89) 97.7 Labs/Diagnostic Data Labs Test 05/15/25 11:39 05/15/25 10:34 05/15/25 02:58 Range/Units Urine Color Yellow Yellow Urine Clarity Turbid H Clear Urine pH 5.0 5.0-9.0 Urine Specific [place] 1.024 1.001-1.035 Urine Protein Trace H Negative Urine Ketones 1+ H Negative Urine Blood Negative Negative /uL Urine Nitrite Negative Negative Urine Bilirubin 1+ Negative Urine Urobilinogen Normal Negative mg/dL Urine Leukocyte Esterase 1+ Negative /uL Urine RBC 2 0 - 3 /hpf Urine Microscopic WBC 7 H 0-3 /HPF Urine Squamous Epithelial Cells Few <5 /hpf Urine Bacteria Many H None Seen /hpf Urine Hyaline Casts Many 0 - 2 /lpf Urine Mucus Few None Seen Urine Glucose Normal Normal mg/dL Urine Opiates Screen Pos NEGATIVE Urine Fentanyl Screen Neg NEGATIVE Urine Barbiturates Screen Neg NEGATIVE Urine Phencyclidine Screen Neg NEGATIVE Urine Amphetamines Screen Neg NEGATIVE Urine Benzodiazepines Screen Neg NEGATIVE Urine Cocaine Screen Neg NEGATIVE Urine Cannabinoids Screen Neg NEGATIVE Prothrombin Time 10.3 9.3-11.8 sec Prothrombin Time INR 0.97 0.9-1.15 Activated Partial Thromboplast Time 28.0 24.5-34.5 SEC Hemoglobin A1c 5.2 <5.7 % A1C Lactic Acid Level 0.9 0.4-2.0 mmol/L Vitamin B12 Level 3373 H 211-911 pg/mL Vitamin D 25-Hydroxy 74.3 30.0-100 ng/mL Thyroid Stimulating Hormone (TSH) 1.25 0.55-4.78 uIU/mL White Blood Count 18.9 H 4.4-10.8 10^3/uL Red Blood Count 3.73 L 4.5-5.90 10^6/uL Hemoglobin 12.2 L 13.5-17.5 g/dL Hematocrit 35.8 L 41.0-53.0 % Mean Corpuscular Volume 95.9 80.0-100.0 fL Mean Corpuscular Hemoglobin 32.8 H 28.0-32.0 pg Mean Corpuscular Hemoglobin Concent 34.2 32.0-36.0 g/dL Red Cell Distribution Width 12.8 11.8-14.3 % Platelet Count 376 140-450 10^3/uL Mean Platelet Volume 6.5 L 6.9-10.8 fL Neutrophils (%) (Auto) 81.2 H 37.0-80.0 % Lymphocytes (%) (Auto) 10.3 10.0-50.0 % Monocytes (%) (Auto) 7.9 0.0-12.0 % Eosinophils (%) (Auto) 0.4 0.0-7.0 % Basophils (%) (Auto) 0.2 0.0-2.0 % Neutrophils # (Auto) 15.4 H 1.6-8.6 10 ^3/uL Lymphocytes # (Auto) 2.0 0.4-5.4 10 ^3/uL Monocytes # (Auto) 1.5 H 0-1.3 10 ^3/uL Eosinophils # (Auto) 0.1 0-0.8 10 ^3/uL Basophils # (Auto) 0 0-0.2 10 ^3/uL Nucleated Red Blood Cells 0.0 % Sodium Level 134 L 136-145 mmol/L Potassium Level 3.4 L 3.5-5.1 mmol/L Chloride Level 89 L 98-107 mmol/L Carbon Dioxide Level 29 20-31 mmol/L Anion Gap 16 H 5-15 Blood Urea Nitrogen 39 H 9-23 mg/dL Creatinine 2.20 H 0.700-1.30 mg/dL Glomerular Filtration Rate Calc 33 >90 mL/min BUN/Creatinine Ratio 17.7 10.0-20.0 Serum Glucose 103 74-106 mg/dL Calcium Level 9.0 8.7-10.4 mg/dL Total Bilirubin 0.3 0.2-1.0 mg/dL Aspartate Amino Transferase (AST) 16 13-40 U/L Alanine Aminotransferase (ALT) 15 7-40 U/L Alkaline Phosphatase 60 46-116 U/L Total Protein 6.2 5.7-8.2 g/dL Albumin 3.7 3.2-4.8 g/dL Assessment [id number] C/O ABD PAIN N/V AFEBRILE HEMODYNAMICALLY LABILE ON MINIMAL VASOPRESSOR SUPPORT DEHYDRATED NO BM FLATUS + GASTROGRAFIN STUDY R/O SBO KEEP NPO NG HYDRATION CONSIDER EMERGENT SURGERY BASED ON ONGOING EVAL Plan discussed with: Patient MIESHA SCHULTZ MD May 15, 2025:36
[2025-05-15] MEDS: GASTROGRAFIN 120 ML SOL ONE (19:39)
[2025-05-15] MEDS: POTASSIUM CHL 20MEQ/100ML 100 ML IV ONE (19:40)
--- NOTE | 2025-05-15 19:48 | DVH ---
CHEST RADIOGRAPH Indication: central line placement Technique: Single frontal view of the chest was obtained Comparison: XY CHEST PORTABLE on DOS: 05/15/25 FINDINGS: Lines and Tubes: Right internal jugular catheter in place superior vena cava. Tip appears to be at th e cavoatrial junction or within the right atrium. Lungs: No focal consolidation. Pleura: No effusion. No pneumothorax. Cardiomediastinal contours: Unremarkable Bones: No acute osseous abnormality. IMPRESSION: 1. Right internal jugular catheter from the right internal jugular vein is present with the tip of th e catheter of the cavoatrial junction or within the right atrium.
--- NOTE | 2025-05-15 19:49 | DVHINCON2 ---
DATE OF CONSULTATION: 05/15/2025 HISTORY OF PRESENT ILLNESS: This patient is 65 years old, coming in with abdominal pain, some nausea, and vomiting. He has had this bowel obstruction before and he was treated at [facility], treated conservatively, and got better. He was discharged. Then a few years ago, he had a ventral hernia repair done according to his history and that repair was done with a mesh. He did well after that, but then there has been ongoing bowel obstruction that has been treated conservatively. Right now, he has nausea and vomiting and he has not had any bowel activity for the past 2-3 days. He did pass flatus. No hematochezia or melena. No bleeding per rectum. PAST MEDICAL HISTORY: No diabetes or hypertension. PAST SURGICAL HISTORY: As mentioned above. PHYSICAL EXAMINATION: VITAL SIGNS: Afebrile, stable signs. HEENT: No evidence of pallor, cyanosis, or jaundice. NECK: Supple and nontender, with no thyromegaly or lymphadenopathy. CHEST AND LUNGS: Clear. HEART: Within normal limits. ABDOMEN: Soft. He is distended. He is minimally tender on the left side. No rebound. EXTREMITIES: Unremarkable. NEUROLOGIC: Intact. CLINICAL IMPRESSION: Rule out small bowel obstruction secondary to adhesions and the Gastrografin study has been done and the patient vomited after that and I was asked to see him. Dr. Olivas requested my evaluation and based upon my clinical impression, he needs to have an NG tube placed, kept n.p.o. He needs to get some hydration done. He is on minimal vasopressor support and so based upon ongoing evaluation, emergent surgery can be considered. MD ESME Saez/RAMONE TID: [id number] RECEIPT: [id number] cc:
--- NOTE | 2025-05-15 20:32 | DVH ---
CHEST RADIOGRAPH Indication: NGT PLACEMENT Technique: Single frontal view of the chest was obtained Comparison: XY CHEST PORTABLE on DOS: 05/15/25, XY CHEST PORTABLE on DOS: 05/15/25 FINDINGS: Lines and Tubes: Right internal jugular catheter with the tip with the tip at the cavoatrial junction or just within the right atrial. Lungs: No focal consolidation. Pleura: No effusion. No pneumothorax. Cardiomediastinal contours: Unremarkable Bones: No acute osseous abnormality. IMPRESSION: 1. Enteric tube below the diaphragm in the stomach 2. Right internal jugular catheter in place cavoatrial junction or just within the right atrium.
[2025-05-15] MEDS: D5W/SOD CHL 0.45% 1,000 ML IV SCH (20:45)
[2025-05-15] MEDS: PIPERACILLIN-TAZOB 3.375GM 100 ML IV SCH (22:25)
[2025-05-16] VITALS (101 sets, daily range): BP systolic 82–124; BP diastolic 44–76; PULSE 46–97; RESP 8–36; TEMP 98–99.3; O2SAT 92–100
--- NOTE | 2025-05-16 03:36 | DVH ---
Exam: XY KUB ABDOMEN SINGLE VIEW Indication: SMALL BOWEL OBSTRUCTION Comparison: Previous day small-bowel series, CT abdomen/pelvis 05/14/2025 Technique: 1 radiographic views of the abdomen. Findings: Enteric tube side port and tip overlie the stomach, with some retained enteric contrast. Interval tra nsit of enteric contrast to the pelvis and a large bowel loop in the right hemiabdomen, correlating w ith dilated small bowel on prior CT. The lower chest is not well assessed. Osseous structures are unchanged. Impression: 1. Enteric contrast transit within dilated small bowel loops. No definitive large bowel contrast. Re commend repeat radiograph in 8-12 hours. 2. Adequately positioned enteric tube with residual gastric contrast.
[2025-05-16 05:28] LABS: Nucleated Red Blood Cells % 0.0 %
[2025-05-16 05:30] LABS: Hematocrit 35.1 % (41.0-53.0); Hemoglobin 12.4 g/dL (13.5-17.5); Mean Corpuscular Hemoglobin 32.9 pg (28.0-32.0); Mean Corpuscular Volume 92.8 fL (80.0-100.0)
[2025-05-16 05:41] LABS: INR 1.02 (0.9-1.15); Prothrombin Time 10.8 sec (9.3-11.8)
[2025-05-16 05:43] LABS: Alanine Aminotransferase 13 U/L (7-40); Albumin 3.7 g/dL (3.2-4.8); Alkaline Phosphatase 60 U/L (46-116); Anion Gap 11 (5-15); BUN/Creatinine Ratio 31.5 (10.0-20.0); Magnesium 1.9 mg/dL (1.6-2.6); Sodium 139 mmol/L (136-145); Total Protein 6.0 g/dL (5.7-8.2)
[2025-05-16 05:44] LABS: Bilirubin, Total 0.3 mg/dL (0.2-1.0); Blood Urea Nitrogen 39 mg/dL (9-23); Calcium 8.3 mg/dL (8.7-10.4); Carbon Dioxide 31 mmol/L (20-31); Chloride 97 mmol/L (98-107); Glucose 181 mg/dL (74-106); Potassium 3.2 mmol/L (3.5-5.1)
[2025-05-16] MEDS: POTASSIUM CHL 20MEQ/100ML 100 ML IV SCH (06:40)
[2025-05-16] MEDS ORDERED: POTASSIUM CHL 20MEQ/100ML 100 ML IV SCH (08:15)
--- NOTE | 2025-05-16 09:58 | DVH ---
Exam: XY KUB ABDOMEN SINGLE VIEW Indication: POSSIBLE SBO Comparison: XY KUB ABDOMEN SINGLE VIEW on DOS: 05/16/25, XY SMALL BOWEL SERIES-W GASTROGRA on DOS: 05/15/25, CT CT AB PEL WO CON-NO ORAL OR IV on DOS: 05/14/25 Technique: 1 radiographic views of the abdomen. Findings: Abnormal nonspecific bowel-gas pattern. There is no definite evidence for pneumoperitoneum. No abnormal calcifications noted. Severe degenerative changes of the left hip. Impression: Abnormal nonspecific bowel-gas pattern.
[2025-05-16] MEDS ORDERED: AZITHROMYCIN 500MG/ 250ML 250 ML IV SCH (10:00)
--- NOTE | 2025-05-16 10:56 | DVHPN2 ---
Progress Note Date Seen: May 16, 2025 Medical Necessity Reason Pt with a Central, PICC or Fol: Yes The following are medically ne: Central Line Objective vital signs Vital Sign Date Time Temp Pulse Resp B/P (MAP) Pulse Ox O2 Delivery O2 Flow Rate FiO2 05/16/25 08:00 62 05/16/25 07:00 109/63 (78) 98 05/16/25 06:15 18 05/16/25 06:00 Nasal Cannula* 2 28 05/16/25 04:00 98.1 98.1 Total Intake and Output 05/15/25 05/15/25 05/16/25 15:00 23:00 07:00 Intake Total 45.00 ml 419.50 ml 1017.50 ml Output Total 500 ml 3300 ml Balance 45.00 ml -80.50 ml -2282.50 ml medications Current Medications Medications Dose Ordered Sig/Taiwo Route Start Time Stop Time Status Last Admin Dose Admin Ondansetron HCl 4 mg Q4HP PRN IV 05/14/25 22:15 05/15/25 19:01 4 MG Acetaminophen 650 mg Q6HP PRN PO 05/14/25 22:15 Morphine Sulfate 2 mg Q4HPRN PRN IV 05/14/25 22:15 Pantoprazole Sodium 40 mg DAILY IV 05/15/25 10:00 05/16/25 10:38 40 MG Norepinephrine Bitartrate 250 ml @ 3.75 mls/hr Q24H IV 05/15/25 07:15 05/15/25 07:15 3.75 MLS/HR Piperacillin Sod/ Tazobactam Sod 100 ml @ 25 mls/hr Q8HR IV 05/15/25 22:00 05/16/25 05:53 25 MLS/HR Dextrose/Sodium Chloride 1,000 ml @ 100 mls/hr Q10H IV 05/15/25 20:45 05/16/25 06:40 100 MLS/HR Potassium Chloride 100 ml @ 100 mls/hr Q2H IV 05/16/25 06:30 05/16/25 11:29 05/16/25 10:38 100 MLS/HR laboratory and microbiology Laboratory Tests 05/16/25 05:07 Test 05/16/25 05:07 Range/Units Serum Glucose 181 H 74-106 mg/dL Microbiology Date/Time Source Procedure Growth Status 05/15/25 10:34 Blood Blood Culture - Preliminary NO GROWTH AFTER 24 HOURS OF INCUBATION. Resulted Problem List/Assessment/Plan Problem List/Assessment/Plan AFEBRILE VSS ABD SOFT LESS DISTENDED LESS TENDER NO REBOUND WBC TRENDING DOWN DEHYDRATED NO BM FLATUS + RESOLVING SBO POSSIBLE ONGOING ILEUS NG MORE THAN 2 L NOW TRENDING DOWN CONTINUE CLOSE OBSERVATION CONSIDER EMERGENT SURGERY BASED ON ONGOING EVAL NURSE AND FAMILY AT BEDSIDE Plan discussed with: Patient My Orders My Orders Orders - MIESHA SCHULTZ MD Procedure Category Date Status Time Chest Portable XY 05/15/25 Resulted 19:55 Kub Abdomen Single XY 05/16/25 Resulted View 07:00 D5w/Sod Chl 0.45% PHA 05/15/25 In Process (D5w 1/2ns) 20:45 Kub Abdomen Single XY 05/16/25 Resulted View 08:37 Sodium Chloride 0.9% PHA 05/16/25 In Process 11:00 Dietary Evaluation Review Comments: Nutrition Recommendation 1) Consider PN/TPN if NPO > 7 days 2) Advance to soft diet as medically feasible 3) Monitor NPO status/PO intake, lab values, weight trend, and I/O Expected Outcomes/Goals: To meet >75% estimated needs GI symptoms to improve Fu 2-3 days MIESHA SCHULTZ MD May 16, 2025 10:55
[2025-05-16] MEDS: SODIUM CHLORIDE 0.9% 1,000 ML IV ONE (12:17)
--- NOTE | 2025-05-16 12:33 | DVHSR ---
APPROVED REPORT EXAM: Two-dimensional and M-mode echocardiogram with Doppler and color Doppler. Blood Pressure: 88/45 mmHg INDICATION BIlateraal lower ext edema RISK FACTORS Height: 68, Weight: 149 DIMENSIONS LVDd4.7 (3.8-5.7cm)LA (2D)4.6 (1.9-4.0cm)Aortic Root4.1 (2.0-3.7cm) LVDs2.9 (2.5-4.0cm)LA (MM) (1.9-4.0cm)Aortic Cusp Exc1.3 (1.5-2.0cm) EF (%) 68.0 (55-70%)Rt. Atrium3.2 (1.9-4.0cm)Asc. Aorta cm IVSd1.0 (0.7-1.1cm)RV (D) (1.8-2.4cm) PWd1.1 (0.7-1.1cm) Mitral Valve MitralMitral Stenosis E wave1.04m/sMV Mean GR.mmHg A wave0.83m/sMV Peak GR.53mmHg E/A ratio1.32D MVAcm2 DECEL [id number] 1/2 [id number] IVRTmsDop MVA3.28cm2 Aortic Valve Aortic ValveAortic Stenosis V11.17m/Branden Mean GR.6mmHg V21.51m/Branden Peak GR.9mmHg LVOT Diameter2.3 (1.8-2.4cm)Doppler AVA3.22cm2 Pulmonic Valve V21.15m/s Tricuspid Valve TR Velocity2.16m/s [id number] Conclusion lvef 65% normal rv functin left atrium enlarged no severev avle abnormaities noted mild mitral regurg
--- NOTE | 2025-05-16 13:22 | DVHPNRES ---
Progress Note Date Seen: May 16, 2025 Resident Creating Document: YOJANA MATOS RESIDENT Medical Necessity Reason Pt with a Central, PICC or Fol: Yes The following are medically ne: Central Line (Right IJ) Subjective Review of Systems This is a 65-year-old male with past medical history of recurrent small-bowel obstruction and hospitalization, umbilical hernia repair with mesh 10 years ago, bilateral leg edema came to ER with a complaint of abdominal pain for last 3 months. Patient experienced similar symptoms associated with nausea, vomiting. But last few days patient's symptoms worsen and vomiting and abdominal pain for last 5 days which is worsen day by day. Abdominal pain pain is 8/10, intermittent, spasmodic, no aggravating or relieving factor and associated with loss of appetite, intentional weight loss more than 200 lb last year. Patient took Maxwell for his left hip pain and bilateral leg pain. During admission, patient blood pressure was low and started Levophed in ER. As per patient, his primary care prescribed him senna 5 tablets per day which is not working. As per sister, patient noncompliant with medical management and left AMA from [facility]. Past medical history: Recurrent small-bowel obstruction without surgical intervention, bilateral leg edema Surgical history: Umbilical hernia repair with mesh 10 years ago Family history: Nothing contributory Social history: Cigarette smoke 1 pack per day for 30 years, denies any illicit drug or EtOH use Allergy: Aspirin PCP:Dr. Timmons Home medication: Nabumetone, Maxwell, senna, vitamin D3, vitamin B12, baclofen, furosemide. 05/15: Patient seen and evaluated in bedside. Right IJ central line placed. Surgery on board. 05/16: Patient seen and evaluated in bedside. Patient abdomen soft, abdominal pain improving. Passing flatus but no bowel. Surgery on board. Objective vital signs Vital Sign Date Time Temp Pulse Resp B/P (MAP) Pulse Ox O2 Delivery O2 Flow Rate FiO2 05/16/25 12:00 71 05/16/25 11:40 13 100 Room Air* 0 21 05/16/25 07:00 109/63 (78) 05/16/25 04:00 98.1 98.1 Total Intake and Output 05/15/25 05/15/25 05/16/25 15:00 23:00 07:00 Intake Total 45.00 ml 419.50 ml 1017.50 ml Output Total 500 ml 3300 ml Balance 45.00 ml -80.50 ml -2282.50 ml medications Current Medications Medications Dose Ordered Sig/Taiwo Route Start Time Stop Time Status Last Admin Dose Admin Ondansetron HCl 4 mg Q4HP PRN IV 05/14/25 22:15 05/15/25 19:01 4 MG Acetaminophen 650 mg Q6HP PRN PO 05/14/25 22:15 Morphine Sulfate 2 mg Q4HPRN PRN IV 05/14/25 22:15 Pantoprazole Sodium 40 mg DAILY IV 05/15/25 10:00 05/16/25 10:38 40 MG Norepinephrine Bitartrate 250 ml @ 3.75 mls/hr Q24H IV 05/15/25 07:15 05/15/25 07:15 3.75 MLS/HR Piperacillin Sod/ Tazobactam Sod 100 ml @ 25 mls/hr Q8HR IV 05/15/25 22:00 05/16/25 05:53 25 MLS/HR Dextrose/Sodium Chloride 1,000 ml @ 100 mls/hr Q10H IV 05/15/25 20:45 05/16/25 06:40 100 MLS/HR Examination Patient currently lying on bed, mild distress Constitutional: Yes: Weakness; No: Fever, Chills, Sweats, Malaise Eyes: No: Pain, Vision change, Conjunctivae inflammation ENT: No: Ear pain, Ear discharge, Nose pain, Nose discharge Respiratory: No: Cough, Dry, Shortness of breath, SOB with excertion, Wheezing, Hemoptysis Cardiovascular: S1-S2 audible, no murmur, mild edema bilateral leg Gastrointestinal: Abdominal Pain on deep palpation, bowel sounds present Genitourinary: No Dysuria, No Frequency, No Incontinence, Musculoskeletal: No: other, neck pain, shoulder pain, arm pain Skin: No: Rash, Lesions, Jaundice, Bruising, Other Neurological: AO x3, Numbness, Incoordination, Change in speech laboratory and microbiology Laboratory Tests 05/16/25 05:07 Test 05/16/25 05:07 Range/Units Serum Glucose 181 H 74-106 mg/dL Microbiology Date/Time Source Procedure Growth Status 05/15/25 16:39 Voided Urine Urine Culture - Preliminary Resulted 05/15/25 10:34 Blood Blood Culture - Preliminary NO GROWTH AFTER 24 HOURS OF INCUBATION. Resulted Problem List/Assessment/Plan Problem List/Assessment/Plan This is a 65-year-old male with past medical history of recurrent small-bowel obstruction and hospitalization, bilateral leg edema came to ER with a complaint of abdominal pain for last 3 months. Patient experienced similar symptoms associated with nausea, vomiting. But last few days patient's symptoms worsen and vomiting and abdominal pain for last 5 days which is worsen day by day. Abdominal pain pain is 8/10, intermittent, spasmodic, no aggravating or relieving factor and associated with loss of appetite, intentional weight loss more than 200 lb last year. Patient took Maxwell for his left hip pain and bilateral leg pain. During admission, patient blood pressure was low and started Levophed in ER. NEUROLOGY Patient AOx4 RASS-0 CARDIOVASCULAR: Bilateral leg edema * No no cardiac history. * Echocardiogram on 05/16/2025: EF 65%, mild mitral regurgitation * Plan: Furosemide -home meds, echocardiogram PULMONARY: Gram-positive/Gram-negative pneumonia Mild pulmonary edema * CT abdomen shows: Left upper lobe pneumonia * CXR; mild pulmonary edema * Lower leg venous Doppler on 06/17/2019: No sonographic evidence for deep venous thrombosis in the right lower extremity deep veins although evaluation was made difficult due to the patient's body habitus. Subcutaneous edema present in the right calf. * Plan: cont. IV antibiotic. GASTROINTESTINAL: Small-bowel obstruction Septic shock ?due to acute bowel obstruction * CT abdomen and pelvis; small bowel obstruction with probable transition point in the lower midline abdomen * NG tube suction 2360CC overnight * Plan: NPO, IV antibiotic, IVF, NG placement. Surgical recommended no surgical intervention at this time, Gastrografin bowel series. GENITOURINARY: Complicated cystitis NIKKI due to vasomotor nephropathy Hyponatremia Hypokalemia * UA- turbid, LE 1+, bacteria many * Serum creatinine 2.20, unknown baseline * Avoid nephrotoxic drugs * Plan: IVF.urine/Bcx culture -pending HEMATOLOGY: Leukocytosis * Plan: monitor CBC daily, leukocytosis trending down METABOLIC: * Nothing contributory * Plan: THS 1.25, hemoglobin A1c 5.2 INFECTIOUS DISEASE: Sepsis due to acute bowel obstruction Sepsis Gram-positive /Gram-negative pneumonia/UTI * CT scan shows left upper lobe pneumonia * CT abdomen and pelvis shows small bowel obstruction * Plan: Discontinue metronidazole, ceftriaxone and start Zosyn on 05/15/2025. Musculature skeletal and skin * Chronic skin changes bilateral lower extremity likely venous stasis * plan: monitor for skin breakdown. DIET: IVF DVT prophylax: SCDs GI prophylaxis: Protonix Bowel regimen: On hold Code status: Full code LINES/DRAINS/ACCESS: right IJ IV access: Peripheral IV line Drips: Levophed Healy catheter: None DISPOSITION: ICU Patient's status discussed with patient , sister -Karlie over the phone and nurse. Critical care time spent more than 63 minutes, including patient care, chart review. Excluding any procedures Case discussed with Dr. Wills Plan discussed with: Patient, Other (Sister-Dimitri, nurse) My Orders My Orders Orders - YOJANA MATOS Procedure Category Date Status Time Echo 2d Mode Cardiac US 05/15/25 Resulted DOP 13:22 Urine Bacterial ROSIO 05/15/25 In Process Culture 16:46 Mrsa Screen ROSIO 05/15/25 In Process 16:45 Chest Portable XY 05/15/25 Resulted 19:03 Piperacillin-Tazob PHA 05/15/25 In Process 3.375gm (Zosyn 3.375g 22:00 Place Ng ORDERS 05/15/25 Transmitted 20:31 Communication Order ORDERS 05/15/25 Transmitted 20:31 Dietary Evaluation Review Comments: Nutrition Recommendation 1) Consider PN/TPN if NPO > 7 days 2) Advance to soft diet as medically feasible 3) Monitor NPO status/PO intake, lab values, weight trend, and I/O Expected Outcomes/Goals: To meet >75% estimated needs GI symptoms to improve Fu 2-3 days Date of Service: May 16, 2025 Billing Provider: CHERELLE WILLS MD Common Visit Codes: [id number] CARE 30-74 MIN YOJANA MATOS May 16, 2025 13:22 CHERELLE WILLS MD May 17, 2025 14:53
[2025-05-17] VITALS (82 sets, daily range): BP systolic 63–123; BP diastolic 32–78; PULSE 46–115; RESP 9–58; TEMP 97.3–98.2; O2SAT 85–100
[2025-05-17 04:24] LABS: Hematocrit 32.0 % (41.0-53.0); Hemoglobin 11.4 g/dL (13.5-17.5); Mean Corpuscular Hemoglobin 33.3 pg (28.0-32.0); Mean Corpuscular Volume 93.8 fL (80.0-100.0); Nucleated Red Blood Cells % 0.1 %
[2025-05-17 04:38] LABS: Chloride 106 mmol/L (98-107); Sodium 144 mmol/L (136-145)
[2025-05-17 04:49] LABS: BUN/Creatinine Ratio 26.3 (10.0-20.0); Blood Urea Nitrogen 20 mg/dL (9-23)
[2025-05-17 04:53] LABS: Potassium 2.8 mmol/L (3.5-5.1)
[2025-05-17 04:54] LABS: Calcium 7.1 mg/dL (8.7-10.4); Glucose 127 mg/dL (74-106)
[2025-05-17 05:17] LABS: Anion Gap 9 (5-15); Carbon Dioxide 29 mmol/L (20-31)
[2025-05-17] MEDS: POTASSIUM CHL 20MEQ/100ML 100 ML IV SCH (05:50)
--- NOTE | 2025-05-17 09:06 | DVHPNRES ---
Progress Note Date Seen: May 17, 2025 Resident Creating Document: YOJANA MATOS RESIDENT Medical Necessity Reason Pt with a Central, PICC or Fol: Yes The following are medically ne: Central Line (Right IJ) Subjective Review of Systems This is a 65-year-old male with past medical history of recurrent small-bowel obstruction and hospitalization, umbilical hernia repair with mesh 10 years ago, bilateral leg edema came to ER with a complaint of abdominal pain for last 3 months. Patient experienced similar symptoms associated with nausea, vomiting. But last few days patient's symptoms worsen and vomiting and abdominal pain for last 5 days which is worsen day by day. Abdominal pain pain is 8/10, intermittent, spasmodic, no aggravating or relieving factor and associated with loss of appetite, intentional weight loss more than 200 lb last year. Patient took Golden for his left hip pain and bilateral leg pain. During admission, patient blood pressure was low and started Levophed in ER. As per patient, his primary care prescribed him senna 5 tablets per day which is not working. As per sister, patient noncompliant with medical management and left AMA from [facility]. Past medical history: Recurrent small-bowel obstruction without surgical intervention, bilateral leg edema Surgical history: Umbilical hernia repair with mesh 10 years ago Family history: Nothing contributory Social history: Cigarette smoke 1 pack per day for 30 years, denies any illicit drug or EtOH use Allergy: Aspirin PCP:Dr. Timmons Home medication: Nabumetone, Golden, senna, vitamin D3, vitamin B12, baclofen, furosemide. 05/15: Patient seen and evaluated in bedside. Right IJ central line placed. Surgery on board. 05/16: Patient seen and evaluated in bedside. Patient abdomen soft, abdominal pain improving. Passing flatus but no bowel. Surgery on board. 05/17: Patient seen and evaluated today. 350 mL NG tube suction overnight. Surgery on board. Lab shows hyponatremia and hypomagnesemia -supplemented. Patient went for laparoscopic procedure today. Objective vital signs Vital Sign Date Time Temp Pulse Resp B/P (MAP) Pulse Ox O2 Delivery O2 Flow Rate FiO2 05/17/25 08:15 50 14 100/62 (75) 95 05/17/25 08:00 Room Air* 0 21 05/17/25 04:00 98.1 98.1 Total Intake and Output 05/16/25 05/16/25 05/17/25 15:00 23:00 07:00 Intake Total 2037.50 ml 1028.75 ml 892.50 ml Output Total 0 ml 1300 ml 900 ml Balance 2037.50 ml -271.25 ml -7.50 ml medications Current Medications Medications Dose Ordered Sig/Taiwo Route Start Time Stop Time Status Last Admin Dose Admin Ondansetron HCl 4 mg Q4HP PRN IV 05/14/25 22:15 05/15/25 19:01 4 MG Acetaminophen 650 mg Q6HP PRN PO 05/14/25 22:15 Morphine Sulfate 2 mg Q4HPRN PRN IV 05/14/25 22:15 Pantoprazole Sodium 40 mg DAILY IV 05/15/25 10:00 05/16/25 10:38 40 MG Norepinephrine Bitartrate 250 ml @ 3.75 mls/hr Q24H IV 05/15/25 07:15 05/16/25 16:15 11.25 MLS/HR Piperacillin Sod/ Tazobactam Sod 100 ml @ 25 mls/hr Q8HR IV 05/15/25 22:00 05/17/25 05:50 25 MLS/HR Dextrose/Sodium Chloride 1,000 ml @ 100 mls/hr Q10H IV 05/15/25 20:45 05/17/25 06:46 100 MLS/HR Potassium Chloride 100 ml @ 50 mls/hr Q2H IV 05/17/25 05:15 05/17/25 13:14 05/17/25 07:15 50 MLS/HR Examination Patient currently lying on bed, mild distress Constitutional: Lean and thin appearance Eyes: No: Pain, Vision change, Conjunctivae inflammation ENT: No: Ear pain, Ear discharge, Nose pain, Nose discharge Respiratory: No: Cough, Dry, Shortness of breath, SOB with excertion, Wheezing, Hemoptysis Cardiovascular: S1-S2 audible, no murmur, mild edema bilateral leg Gastrointestinal: Abdominal Pain on deep palpation, bowel sounds present Genitourinary: No Dysuria, No Frequency, No Incontinence, Musculoskeletal: No: other, neck pain, shoulder pain, arm pain Skin: No: Rash, Lesions, Jaundice, Bruising, Other Neurological: AO x3, Numbness, Incoordination, Change in speech laboratory and microbiology Laboratory Tests 05/17/25 03:30 Test 05/17/25 03:30 Range/Units Serum Glucose 127 H 74-106 mg/dL Microbiology Date/Time Source Procedure Growth Status 05/15/25 16:46 Nose MRSA Screen - Final Complete 05/15/25 16:39 Voided Urine Urine Culture - Preliminary Resulted 05/15/25 10:34 Blood Blood Culture - Preliminary NO GROWTH AFTER 24 HOURS OF INCUBATION. Resulted Problem List/Assessment/Plan Problem List/Assessment/Plan This is a 65-year-old male with past medical history of recurrent small-bowel obstruction and hospitalization, bilateral leg edema came to ER with a complaint of abdominal pain for last 3 months. Patient experienced similar symptoms associated with nausea, vomiting. But last few days patient's symptoms worsen and vomiting and abdominal pain for last 5 days which is worsen day by day. Abdominal pain pain is 8/10, intermittent, spasmodic, no aggravating or relieving factor and associated with loss of appetite, intentional weight loss more than 200 lb last year. Patient took Golden for his left hip pain and bilateral leg pain. During admission, patient blood pressure was low and started Levophed in ER. NEUROLOGY Patient AOx4 RASS-0 CARDIOVASCULAR: Bilateral leg edema * No no cardiac history. * Echocardiogram on 05/16/2025: EF 65%, mild mitral regurgitation * Plan: Furosemide -home meds we will resume accordingly. PULMONARY: Gram-positive/Gram-negative pneumonia Mild pulmonary edema * CT abdomen shows: Left upper lobe pneumonia * CXR; mild pulmonary edema * Lower leg venous Doppler on 06/17/2019: No sonographic evidence for deep venous thrombosis in the right lower extremity deep veins although evaluation was made difficult due to the patient's body habitus. Subcutaneous edema present in the right calf. * Plan: cont. IV antibiotic. GASTROINTESTINAL: Small-bowel obstruction Septic shock ?/distributive shock due to acute bowel obstruction * CT abdomen and pelvis; small bowel obstruction with probable transition point in the lower midline abdomen * NG tube suction 350 CC overnight * Plan: NPO, IV antibiotic, IVF, NG placement. * As per surgery, patient need laparoscopy likely ileostomy or colostomy. Patient initially refused any procedure today. Discussed side effects of refusal of medical management including perforation, shock, even . Patient finally agree to go for laparoscopic procedure. GENITOURINARY: Complicated cystitis NIKKI due to vasomotor nephropathy Hyponatremia Hypokalemia Hypomagnesemia * UA- turbid, LE 1+, bacteria many * Serum creatinine 2.20, unknown baseline * Avoid nephrotoxic drugs * Plan: IVF.urine culture preliminary-no growth HEMATOLOGY: Leukocytosis * Plan: monitor CBC daily, leukocytosis trending down METABOLIC: * Nothing contributory * Plan: THS 1.25, hemoglobin A1c 5.2 INFECTIOUS DISEASE: Sepsis due to acute bowel obstruction Sepsis Gram-positive /Gram-negative pneumonia/UTI * CT scan shows left upper lobe pneumonia * CT abdomen and pelvis shows small bowel obstruction * MRSA nasal screen negative * Blood culture x2, urine culture-negative * Leukocytosis trending down to normal * Plan: Discontinue metronidazole, ceftriaxone and start Zosyn on 05/15/2025. Musculature skeletal and skin * Chronic skin changes bilateral lower extremity likely venous stasis * plan: monitor for skin breakdown. DIET: IVF, NPO DVT prophylax: SCDs GI prophylaxis: Protonix Bowel regimen: On hold Code status: Full code LINES/DRAINS/ACCESS: right IJ IV access: Peripheral IV line Drips: Levophed Healy catheter: None DISPOSITION: ICU Patient's status discussed with patient , daughter -Karlie over the phone and nurse. Critical care time spent more than 67 minutes, including patient care, chart review. Excluding any procedures Case discussed with Dr. Wills Plan discussed with: Patient, Other (Nurse) Dietary Evaluation Review Comments: Nutrition Recommendation 1) Consider PN/TPN if NPO > 7 days 2) Advance to soft diet as medically feasible 3) Monitor NPO status/PO intake, lab values, weight trend, and I/O Expected Outcomes/Goals: To meet >75% estimated needs GI symptoms to improve Fu 2-3 days Date of Service: May 17, 2025 Billing Provider: CHERELLE WILLS MD Common Visit Codes: [id number] CARE 30-74 MIN YOJANA MATOS May 17, 2025 09:06 CHERELLE WILLS MD May 18, 2025 12:30
--- NOTE | 2025-05-17 13:17 | DVHPN2 ---
Progress Note Date Seen: May 17, 2025 Medical Necessity Reason Pt with a Central, PICC or Fol: Yes The following are medically ne: Central Line (Right IJ) Objective vital signs Vital Sign Date Time Temp Pulse Resp B/P (MAP) Pulse Ox O2 Delivery O2 Flow Rate FiO2 05/17/25 12:15 59 100/64 (76) 96 05/17/25 12:00 98.2 98.2 05/17/25 12:00 16 Room Air* 0 21 Total Intake and Output 05/16/25 05/16/25 05/17/25 15:00 23:00 07:00 Intake Total 2037.50 ml 1028.75 ml 892.50 ml Output Total 0 ml 1300 ml 900 ml Balance 2037.50 ml -271.25 ml -7.50 ml medications Current Medications Medications Dose Ordered Sig/Taiwo Route Start Time Stop Time Status Last Admin Dose Admin Ondansetron HCl 4 mg Q4HP PRN IV 05/14/25 22:15 05/15/25 19:01 4 MG Acetaminophen 650 mg Q6HP PRN PO 05/14/25 22:15 Morphine Sulfate 2 mg Q4HPRN PRN IV 05/14/25 22:15 Pantoprazole Sodium 40 mg DAILY IV 05/15/25 10:00 05/17/25 10:00 40 MG Norepinephrine Bitartrate 250 ml @ 3.75 mls/hr Q24H IV 05/15/25 07:15 05/16/25 16:15 11.25 MLS/HR Piperacillin Sod/ Tazobactam Sod 100 ml @ 25 mls/hr Q8HR IV 05/15/25 22:00 05/17/25 05:50 25 MLS/HR Dextrose/Sodium Chloride 1,000 ml @ 100 mls/hr Q10H IV 05/15/25 20:45 05/17/25 06:46 100 MLS/HR Potassium Chloride 100 ml @ 50 mls/hr Q2H IV 05/17/25 05:15 05/17/25 13:14 05/17/25 11:29 50 MLS/HR laboratory and microbiology Laboratory Tests 05/17/25 03:30 Test 05/17/25 03:30 Range/Units Serum Glucose 127 H 74-106 mg/dL Microbiology Date/Time Source Procedure Growth Status 05/15/25 16:46 Nose MRSA Screen - Final Complete 05/15/25 16:39 Voided Urine Urine Culture - Preliminary Resulted 05/15/25 10:34 Blood Blood Culture - Preliminary NO GROWTH AFTER 48 HOURS OF INCUBATION. Resulted Problem List/Assessment/Plan Problem List/Assessment/Plan AFEBRILE VSS ON VASOPRESSOR BUT TRENDING DOWN ABD SOFT LESS DISTENDED LESS TENDER NO REBOUND WBC TRENDING DOWN NO BM FLATUS + RESOLVING BUT RECURRENT SBO POSSIBLE ONGOING ILEUS NG IN PLACE CONTINUE CLOSE OBSERVATION CONSIDER EMERGENT SURGERY BASED ON ONGOING EVAL NURSE AND FAMILY AT BEDSIDE OPTIONS DISCUSSED PT TO DECIDE TO PROCEED WITH E LAP POSSIBLE BOWEL RESECTION POSSIBLE ILEOSTOMY/COLOSTOMY Plan discussed with: Patient My Orders My Orders Orders - MIESHA SCHULTZ MD Procedure Category Date Status Time Communication Order ORDERS 05/16/25 Transmitted 15:03 Dietary Evaluation Review Comments: Nutrition Recommendation 1) Consider PN/TPN if NPO > 7 days 2) Advance to soft diet as medically feasible 3) Monitor NPO status/PO intake, lab values, weight trend, and I/O Expected Outcomes/Goals: To meet >75% estimated needs GI symptoms to improve Fu 2-3 days MIESHA SCHULTZ MD May 17, 2025 13:17
[2025-05-17 15:33] LABS: Potassium 4.6 mmol/L (3.5-5.1); Sodium 138 mmol/L (136-145)
[2025-05-17 15:34] LABS: Anion Gap 8 (5-15)
[2025-05-17 15:35] LABS: Calcium 9.3 mg/dL (8.7-10.4); Carbon Dioxide 33 mmol/L (20-31); Chloride 97 mmol/L (98-107)
[2025-05-17 15:40] LABS: BUN/Creatinine Ratio 19.1 (10.0-20.0); Blood Urea Nitrogen 18 mg/dL (9-23); Magnesium 1.8 mg/dL (1.6-2.6)
[2025-05-17 15:53] LABS: Glucose 130 mg/dL (74-106)
[2025-05-17] MEDS ORDERED: LIDOCAINE 2% (LOCAL ANESTH.) PF 5ml SDV ONE (15:58)
[2025-05-17] MEDS ORDERED: fentaNYL CITRATE 100 MCG/2 ML VL ONE (15:58)
[2025-05-17] MEDS ORDERED: MIDAZOLAM HCL 2MG/2ML 2ml VIAL (1mg/ml) ONE (15:58)
[2025-05-17] MEDS ORDERED: METOCLOPRAMIDE HCL 5MG/ml INJ 2ml VIAL ONE (15:58)
[2025-05-17] MEDS ORDERED: ONDANSETRON HCL 4 MG/2 ML VIAL ONE (15:58)
[2025-05-17] MEDS ORDERED: ETOMIDATE (2MG/ML) 20ML VIAL IV ONE (15:59)
[2025-05-17] MEDS ORDERED: ROCURONIUM 10MG/ML 10ML VIAL IV ONE (16:00)
[2025-05-17] MEDS: cefTRIAXone SOD 1,000 MG VL ONE (16:03)
[2025-05-17] MEDS ORDERED: SODIUM CHLORIDE LOCK 10 ML ONE (16:26)
[2025-05-17] MEDS: ceFAZolin 1GM VL ONE (16:33)
[2025-05-17] MEDS ORDERED: SUGAMMADEX 200mg/2ml Vial (100MG/ML) IV ONE (18:00)
--- NOTE | 2025-05-17 18:34 | DVHOP2 ---
Operative Report [id number] SBO SEC TO ADHESION FROM THE HERNIA REPAIR MESH AND SMALL BOWEL STRICTURE E LAP EXTENSIVE LYSIS OF ADHESIONS REMOVAL OF MESH SMALL BOWEL RESECTION AND ANASTOMOSIS EBL 25 CC NO DRAIN NO COMPLICATIONS STABLE TRANSFER TO RECOVERY ROOM OP FINDINGS DISCUSSED WITH FAMILY IN DETAIL MIESHA SCHULTZ MD May 17, 2025 18:34
--- NOTE | 2025-05-17 18:40 | DVHOP ---
DATE OF SURGERY: 05/17/2025 PREOPERATIVE DIAGNOSIS: Recurrent bowel obstruction. POSTOPERATIVE DIAGNOSIS: Recurrent bowel obstruction. PROCEDURES: Exploratory laparotomy, extensive lysis of adhesions, removal of ventral hernia mesh that was placed during his hernia repair, and small bowel resection and anastomosis. SURGEON: Wicho Wortyh MD GEOTECHNICIAL PROPERTIES TECHNICIAN: None. ANESTHESIA: General. BLOOD LOSS: Close to 25 mL. DRAINS: No drains. COMPLICATIONS: No complications. DESCRIPTION OF PROCEDURE: The patient was prepped and draped in the usual sterile fashion in the supine position and a vertical midline incision was applied supraumbilically and infraumbilically going to the right of the umbilicus and was taken down to the deeper tissues. The mesh was seen in that location and it was meticulously dissected off. There was a small bowel loop that was closely adherent to this mesh that was causing partial and possibly recurrent small bowel obstruction. The distal bowel was collapsed and the proximal bowel was distended and the contents were reduced back into the abdomen. The NG tube placement was confirmed and a lot of small bowel fluid was taken out, close to 3 liters and then the area of the bowel that was closely adherent to the mesh was strictured down and that was considered with the potential for complete bowel obstruction later on, so it was decided to remove that loop of bowel and proximally and distally healthy segments of the bowel were located and transected using the Endo ELLIOTT stapling device and then a [id number] staple anastomosis was carried out using the Endo ELLIOTT stapling device and sealing off the final opening with the stapling device as well. The small bowel loop was then removed and submitted for pathology with a suture marking the distal end. The mesenteric tissue was brought together using Vicryl suture in a continuous running fashion and the entire small bowel loop was then replaced back into the abdomen in its anatomic location ensuring that there was no obstruction or twisted loop in the process of reducing back into the abdomen. Good flow was seen from the proximal segment to the distal segment as well and the ileocecal junction along to the DJ flexure. The entire small bowel was examined with no other issues. With this being done, irrigation was performed. Hemostasis was secured. Sponge count and needle count was reported correct and the fascia was brought together using PDS suture. The wound was brought together using Vicryl suture for the subcuticular tissue in an interrupted fashion and the skin incision was brought together using 3-0 Monocryl suture in a subcuticular fashion. Surgical glue was applied. Steri-Strips were applied. Dressing was applied. The patient tolerated the procedure well. He was taken back to the recovery room in a stable condition. MD ESME Saez/CHERRI TID: [id number] RECEIPT: [id number] cc: Jairo Bryan MD
[2025-05-17] MEDS ORDERED: ONDANSETRON HCL 4 MG/2 ML VIAL IV PRN (18:45)
[2025-05-17] MEDS ORDERED: HYDROmorphone HCL 2 MG/ML VL/or syr IV PRN (18:45)
[2025-05-17] MEDS ORDERED: METOCLOPRAMIDE HCL 5MG/ml INJ 2ml VIAL IV PRN (18:45)
[2025-05-17] MEDS: MORPHINE SULFATE INJ 2 MG/ml SYRG IV PRN (19:47)
[2025-05-17] MEDS: MORPHINE SULFATE 4 MG/ML SYR/VIAL ONE (20:01)
[2025-05-17] MEDS: MAGNESIUM SULFATE 1GM/100ML 100 ML IV ONE (21:24)
[2025-05-17] MEDS: ACETAMINOPHEN IV 1000 MG/100ML (10MG/ML) IV ONE (22:43)
[2025-05-18] VITALS (96 sets, daily range): BP systolic 77–120; BP diastolic 38–67; PULSE 44–173; RESP 11–26; TEMP 97.6–98.2; O2SAT 67–100
[2025-05-18] MEDS: MORPHINE SULFATE 4 MG/ML SYR/VIAL ONE (03:28)
[2025-05-18 03:50] LABS: Hemoglobin 13.5 g/dL (13.5-17.5); Mean Corpuscular Volume 94.8 fL (80.0-100.0)
[2025-05-18 03:53] LABS: Hematocrit 38.8 % (41.0-53.0); Mean Corpuscular Hemoglobin 33.0 pg (28.0-32.0)
[2025-05-18 04:11] LABS: Chloride 99 mmol/L (98-107); Potassium 4.1 mmol/L (3.5-5.1); Sodium 139 mmol/L (136-145)
[2025-05-18 04:12] LABS: Anion Gap 9 (5-15); Calcium 8.3 mg/dL (8.7-10.4); Carbon Dioxide 31 mmol/L (20-31)
[2025-05-18 04:17] LABS: BUN/Creatinine Ratio 17.0 (10.0-20.0); Blood Urea Nitrogen 17 mg/dL (9-23)
[2025-05-18 04:18] LABS: Glucose 134 mg/dL (74-106)
[2025-05-18 06:06] LABS: Total Cells Counted 100.0 (100)
--- NOTE | 2025-05-18 07:47 | DVHPNRES ---
Progress Note Date Seen: May 18, 2025 Resident Creating Document: YOJANA MATOS RESIDENT Medical Necessity Reason Pt with a Central, PICC or Fol: Yes The following are medically ne: Central Line (Right IJ) Subjective Review of Systems This is a 65-year-old male with past medical history of recurrent small-bowel obstruction and hospitalization, umbilical hernia repair with mesh 10 years ago, bilateral leg edema came to ER with a complaint of abdominal pain for last 3 months. Patient experienced similar symptoms associated with nausea, vomiting. But last few days patient's symptoms worsen and vomiting and abdominal pain for last 5 days which is worsen day by day. Abdominal pain pain is 8/10, intermittent, spasmodic, no aggravating or relieving factor and associated with loss of appetite, intentional weight loss more than 200 lb last year. Patient took [place] for his left hip pain and bilateral leg pain. During admission, patient blood pressure was low and started Levophed in ER. As per patient, his primary care prescribed him senna 5 tablets per day which is not working. As per sister, patient noncompliant with medical management and left AMA from [facility]. Past medical history: Recurrent small-bowel obstruction without surgical intervention, bilateral leg edema Surgical history: Umbilical hernia repair with mesh 10 years ago Family history: Nothing contributory Social history: Cigarette smoke 1 pack per day for 30 years, denies any illicit drug or EtOH use Allergy: Aspirin PCP:Dr. Timmons Home medication: Nabumetone, [place], senna, vitamin D3, vitamin B12, baclofen, furosemide. 05/15: Patient seen and evaluated in bedside. Right IJ central line placed. Surgery on board. 05/16: Patient seen and evaluated in bedside. Patient abdomen soft, abdominal pain improving. Passing flatus but no bowel. Surgery on board. 05/17: Patient seen and evaluated today. 350 mL NG tube suction overnight. Surgery on board. Lab shows hyponatremia and hypomagnesemia -supplemented. Patient went for laparoscopic procedure today. 05/18: Seen and evaluated in bedside. POD 1, started Dilaudid instead of morphine. Leukocytosis likely due to postoperative. Continue Levophed due to hypotension. Objective vital signs Vital Sign Date Time Temp Pulse Resp B/P (MAP) Pulse Ox O2 Delivery O2 Flow Rate FiO2 05/18/25 06:45 63 92/51 (65) 90 05/18/25 06:15 17 05/18/25 06:00 Nasal Cannula* 3 32 05/18/25 04:00 97.8 97.8 Total Intake and Output 05/17/25 05/17/25 05/18/25 15:00 23:00 07:00 Intake Total 1152.00 ml 561.25 ml 937.00 ml Output Total 0 ml 75 ml 675 ml Balance 1152.00 ml 486.25 ml 262.00 ml medications Current Medications Medications Dose Ordered Sig/Taiwo Route Start Time Stop Time Status Last Admin Dose Admin Ondansetron HCl 4 mg Q4HP PRN IV 05/14/25 22:15 05/15/25 19:01 4 MG Acetaminophen 650 mg Q6HP PRN PO 05/14/25 22:15 Morphine Sulfate 2 mg Q4HPRN PRN IV 05/14/25 22:15 05/17/25 23:39 2 MG Pantoprazole Sodium 40 mg DAILY IV 05/15/25 10:00 05/17/25 10:00 40 MG Norepinephrine Bitartrate 250 ml @ 3.75 mls/hr Q24H IV 05/15/25 07:15 05/17/25 23:39 15 MLS/HR Piperacillin Sod/ Tazobactam Sod 100 ml @ 25 mls/hr Q8HR IV 05/15/25 22:00 05/18/25 05:57 25 MLS/HR Dextrose/Sodium Chloride 1,000 ml @ 100 mls/hr Q10H IV 05/15/25 20:45 05/17/25 21:36 100 MLS/HR Examination Patient currently lying on bed, mild distress Constitutional: Lean and thin appearance Eyes: No: Pain, Vision change, Conjunctivae inflammation ENT: No: Ear pain, Ear discharge, Nose pain, Nose discharge Respiratory: No: Cough, Dry, Shortness of breath, SOB with excertion, Wheezing, Hemoptysis Cardiovascular: S1-S2 audible, no murmur, mild edema bilateral leg Gastrointestinal: Abdominal Pain on deep palpation, bowel sounds present Genitourinary: No Dysuria, No Frequency, No Incontinence, Musculoskeletal: No: other, neck pain, shoulder pain, arm pain Skin: No: Rash, Lesions, Jaundice, right IJ in place Neurological: AO x3, Numbness, Incoordination, Change in speech laboratory and microbiology Laboratory Tests 05/18/25 02:45 Test 05/18/25 02:45 Range/Units Serum Glucose 134 H 74-106 mg/dL Microbiology Date/Time Source Procedure Growth Status 05/15/25 16:46 Nose MRSA Screen - Final Complete 05/15/25 16:39 Voided Urine Urine Culture - Preliminary Resulted 05/15/25 10:34 Blood Blood Culture - Preliminary NO GROWTH AFTER 48 HOURS OF INCUBATION. Resulted Problem List/Assessment/Plan Problem List/Assessment/Plan This is a 65-year-old male with past medical history of recurrent small-bowel obstruction and hospitalization, bilateral leg edema came to ER with a complaint of abdominal pain for last 3 months. Patient experienced similar symptoms associated with nausea, vomiting. But last few days patient's symptoms worsen and vomiting and abdominal pain for last 5 days which is worsen day by day. Abdominal pain pain is 8/10, intermittent, spasmodic, no aggravating or relieving factor and associated with loss of appetite, intentional weight loss more than 200 lb last year. Patient took [place] for his left hip pain and bilateral leg pain. During admission, patient blood pressure was low and started Levophed in ER. NEUROLOGY Patient AOx4 RASS-0 CARDIOVASCULAR: Bilateral leg edema * No no cardiac history. * Echocardiogram on 05/16/2025: EF 65%, mild mitral regurgitation * Plan: Furosemide -home meds we will resume accordingly. PULMONARY: Gram-positive/Gram-negative pneumonia Mild pulmonary edema * CT abdomen shows: Left upper lobe pneumonia * CXR; mild pulmonary edema * Lower leg venous Doppler on 06/17/2019: No sonographic evidence for deep venous thrombosis in the right lower extremity deep veins although evaluation was made difficult due to the patient's body habitus. Subcutaneous edema present in the right calf. * Plan: cont. IV antibiotic. GASTROINTESTINAL: Small-bowel obstruction Septic shock ?/distributive shock due to acute bowel obstruction * CT abdomen and pelvis; small bowel obstruction with probable transition point in the lower midline abdomen * NG tube suction 350 CC overnight * Plan: NPO, IV antibiotic, IVF, NG placement. * Surgical procedure done on 05/17/2025: The mesh was stricture likely consider potential complete small-bowel obstruction, remove the loop of bowel in and do ELLIOTT stapling device anastomosis done without complication. Keep patient NPO, IVF, and NG suction. Monitor labs and vital. Surgery on board. GENITOURINARY: Complicated cystitis NIKKI due to vasomotor nephropathy Hyponatremia Hypokalemia Hypomagnesemia * UA- turbid, LE 1+, bacteria many * Serum creatinine 2.20, unknown baseline * NIKKI resolved * Avoid nephrotoxic drugs * Plan: IVF.urine culture preliminary-no growth HEMATOLOGY: Leukocytosis due to surgical procedure. * Plan: monitor CBC daily. METABOLIC: * Nothing contributory * Plan: THS 1.25, hemoglobin A1c 5.2 INFECTIOUS DISEASE: Sepsis due to acute bowel obstruction Sepsis Gram-positive /Gram-negative pneumonia/UTI * CT scan shows left upper lobe pneumonia * CT abdomen and pelvis shows small bowel obstruction * MRSA nasal screen negative * Blood culture x2, urine culture-negative * Leukocytosis trending down to normal * Plan: Discontinue metronidazole, ceftriaxone and start Zosyn on 05/15/2025. Musculature skeletal and skin * Chronic skin changes bilateral lower extremity likely venous stasis * plan: monitor for skin breakdown. DIET: IVF, NPO DVT prophylax: SCDs GI prophylaxis: Protonix Bowel regimen: On hold Code status: Full code LINES/DRAINS/ACCESS: right IJ IV access: Peripheral IV line Drips: Levophed Healy catheter: None DISPOSITION: ICU Patient's status discussed with patient , daughter -Karlie over the phone and nurse. Critical care time spent more than 63 minutes, including patient care, chart review. Excluding any procedures. Case discussed with Dr. Wills Plan discussed with: Patient, Daughter, Other (Nurse) Dietary Evaluation Review Comments: Nutrition Recommendation 1) Consider PN/TPN if NPO > 7 days 2) Advance to soft diet as medically feasible 3) Monitor NPO status/PO intake, lab values, weight trend, and I/O Expected Outcomes/Goals: To meet >75% estimated needs GI symptoms to improve Fu 2-3 days Date of Service: May 18, 2025 Billing Provider: CHERELLE WILLS MD Common Visit Codes: [id number] CARE 30-74 MIN YOJANA MATOS RESIDENT May 18, 2025 07:46 CHERELLE WILLS MD May 20, 2025 11:54
[2025-05-18] MEDS ORDERED: MORPHINE SULFATE 4 MG/ML SYR/VIAL IV PRN (08:00)
[2025-05-18] MEDS: MORPHINE SULFATE 4 MG/ML SYR/VIAL IV PRN (09:24)
--- NOTE | 2025-05-18 09:56 | DVHPN2 ---
Progress Note Date Seen: May 18, 2025 Medical Necessity Reason Pt with a Central, PICC or Fol: Yes The following are medically ne: Central Line (Right IJ) Objective vital signs Vital Sign Date Time Temp Pulse Resp B/P (MAP) Pulse Ox O2 Delivery O2 Flow Rate FiO2 05/18/25 09:24 74 16 103/52 05/18/25 06:45 90 05/18/25 06:00 Nasal Cannula* 3 32 05/18/25 04:00 97.8 97.8 Total Intake and Output 05/17/25 05/17/25 05/18/25 15:00 23:00 07:00 Intake Total 1152.00 ml 561.25 ml 937.00 ml Output Total 0 ml 75 ml 675 ml Balance 1152.00 ml 486.25 ml 262.00 ml medications Current Medications Medications Dose Ordered Sig/Taiwo Route Start Time Stop Time Status Last Admin Dose Admin Ondansetron HCl 4 mg Q4HP PRN IV 05/14/25 22:15 05/15/25 19:01 4 MG Acetaminophen 650 mg Q6HP PRN PO 05/14/25 22:15 Morphine Sulfate 2 mg Q4HPRN PRN IV 05/14/25 22:15 05/17/25 23:39 2 MG Pantoprazole Sodium 40 mg DAILY IV 05/15/25 10:00 05/17/25 10:00 40 MG Norepinephrine Bitartrate 250 ml @ 3.75 mls/hr Q24H IV 05/15/25 07:15 05/17/25 23:39 15 MLS/HR Piperacillin Sod/ Tazobactam Sod 100 ml @ 25 mls/hr Q8HR IV 05/15/25 22:00 05/18/25 05:57 25 MLS/HR Dextrose/Sodium Chloride 1,000 ml @ 100 mls/hr Q10H IV 05/15/25 20:45 05/17/25 21:36 100 MLS/HR Morphine Sulfate 4 mg Q4HPRN PRN IV 05/18/25 08:45 05/18/25 09:24 4 MG laboratory and microbiology Laboratory Tests 05/18/25 02:45 Test 05/18/25 02:45 Range/Units Serum Glucose 134 H 74-106 mg/dL Microbiology Date/Time Source Procedure Growth Status 05/15/25 16:46 Nose MRSA Screen - Final Complete 05/15/25 16:39 Voided Urine Urine Culture - Final Complete 05/15/25 10:34 Blood Blood Culture - Preliminary NO GROWTH AFTER 48 HOURS OF INCUBATION. Resulted Problem List/Assessment/Plan Problem List/Assessment/Plan AFEBRILE HEMODYNAMICALLY LABILE ON VASOPRESSOR ABD SOFT LESS DISTENDED LESS TENDER NO REBOUND WBC ELEVATED NO BM FLATUS NG IN PLACE CONTINUE CLOSE OBSERVATION NURSE AT BEDSIDE Plan discussed with: Patient My Orders My Orders Orders - MIESHA SCHULTZ MD Procedure Category Date Status Time Obtain Consent For: ORDERS 05/17/25 Transmitted 13:17 Obtain Consent For SAMUEL 05/17/25 In Process Anesthesia 13:17 Npo (Nothing By DIET 05/18/25 Transmitted Mouth) Diet Breakfast Abdominal Binder [facility] 05/17/25 In Process 20:14 Dietary Evaluation Review Comments: Nutrition Recommendation 1) Consider PN/TPN if NPO > 7 days 2) Advance to soft diet as medically feasible 3) Monitor NPO status/PO intake, lab values, weight trend, and I/O Expected Outcomes/Goals: To meet >75% estimated needs GI symptoms to improve Fu 2-3 days MIESHA SCHULTZ MD May 18, 2025 09:56
[2025-05-18] MEDS: SODIUM CHLORIDE 0.9% 1,000 ML IV SCH (13:54)
[2025-05-18] MEDS: HYDROmorphone HCL 2 MG/ML VL/or syr IV PRN (14:20)
[2025-05-19] VITALS (99 sets, daily range): BP systolic 70–118; BP diastolic 35–73; PULSE 53–95; RESP 9–51; TEMP 98–98.9; O2SAT 72–100
[2025-05-19 04:02] LABS: Anion Gap 7 (5-15); Carbon Dioxide 29 mmol/L (20-31); Chloride 103 mmol/L (98-107); Potassium 4.4 mmol/L (3.5-5.1); Sodium 139 mmol/L (136-145)
[2025-05-19 04:09] LABS: BUN/Creatinine Ratio 15.5 (10.0-20.0); Blood Urea Nitrogen 11 mg/dL (9-23)
[2025-05-19 04:12] LABS: Hematocrit 34.7 % (41.0-53.0); Hemoglobin 11.9 g/dL (13.5-17.5); Mean Corpuscular Hemoglobin 32.9 pg (28.0-32.0); Mean Corpuscular Volume 95.8 fL (80.0-100.0); Nucleated Red Blood Cells % 0.0 %
[2025-05-19 04:24] LABS: Calcium 8.1 mg/dL (8.7-10.4); Glucose 132 mg/dL (74-106)
--- NOTE | 2025-05-19 13:51 | DVHPNRES ---
Progress Note Date Seen: May 19, 2025 Resident Creating Document: YOJANA MATOS RESIDENT Medical Necessity Reason Pt with a Central, PICC or Fol: Yes The following are medically ne: Central Line (Right IJ) Subjective Review of Systems his is a 65-year-old male with past medical history of recurrent small-bowel obstruction and hospitalization, umbilical hernia repair with mesh 10 years ago, bilateral leg edema came to ER with a complaint of abdominal pain for last 3 months. Patient experienced similar symptoms associated with nausea, vomiting. But last few days patient's symptoms worsen and vomiting and abdominal pain for last 5 days which is worsen day by day. Abdominal pain pain is 8/10, intermittent, spasmodic, no aggravating or relieving factor and associated with loss of appetite, intentional weight loss more than 200 lb last year. Patient took [place] for his left hip pain and bilateral leg pain. During admission, patient blood pressure was low and started Levophed in ER. As per patient, his primary care prescribed him senna 5 tablets per day which is not working. As per sister, patient noncompliant with medical management and left AMA from [facility]. Past medical history: Recurrent small-bowel obstruction without surgical intervention, bilateral leg edema Surgical history: Umbilical hernia repair with mesh 10 years ago Family history: Nothing contributory Social history: Cigarette smoke 1 pack per day for 30 years, denies any illicit drug or EtOH use Allergy: Aspirin PCP:Dr. Timmons Home medication: Nabumetone, [place], senna, vitamin D3, vitamin B12, baclofen, furosemide. 05/15: Patient seen and evaluated in bedside. Right IJ central line placed. Surgery on board. 05/16: Patient seen and evaluated in bedside. Patient abdomen soft, abdominal pain improving. Passing flatus but no bowel. Surgery on board. 05/17: Patient seen and evaluated today. 350 mL NG tube suction overnight. Surgery on board. Lab shows hyponatremia and hypomagnesemia -supplemented. Patient went for laparoscopic procedure today. 05/18: Seen and evaluated in bedside. POD 1, started Dilaudid instead of morphine. Leukocytosis likely due to postoperative. Continue Levophed due to hypotension. 05/19: Patient seen and evaluated in bedside today. POD2, patient wants to leave hospital and take out NG tube. Discussed patient with noncompliance with the medical management and other adverse effect and poor outcome. Patient verbally agree vertebral discussed. Waiting for surgery opinion. Objective vital signs Vital Sign Date Time Temp Pulse Resp B/P (MAP) Pulse Ox O2 Delivery O2 Flow Rate FiO2 05/19/25 11:39 70 16 100/60 05/19/25 11:33 92 Nasal Cannula* 2 28 05/19/25 04:00 98.7 98.7 Total Intake and Output 05/18/25 05/18/25 05/19/25 15:00 23:00 07:00 Intake Total 1022.00 ml 1061.25 ml 982.50 ml Output Total 0 ml 450 ml 500 ml Balance 1022.00 ml 611.25 ml 482.50 ml medications Current Medications Medications Dose Ordered Sig/Taiwo Route Start Time Stop Time Status Last Admin Dose Admin Ondansetron HCl 4 mg Q4HP PRN IV 05/14/25 22:15 05/15/25 19:01 4 MG Acetaminophen 650 mg Q6HP PRN PO 05/14/25 22:15 Pantoprazole Sodium 40 mg DAILY IV 05/15/25 10:00 05/19/25 11:16 40 MG Norepinephrine Bitartrate 250 ml @ 3.75 mls/hr Q24H IV 05/15/25 07:15 05/18/25 20:40 22.5 MLS/HR Piperacillin Sod/ Tazobactam Sod 100 ml @ 25 mls/hr Q8HR IV 05/15/25 22:00 05/19/25 06:16 25 MLS/HR Sodium Chloride 1,000 ml @ 100 mls/hr Q10H IV 05/18/25 12:45 05/19/25 01:06 100 MLS/HR Hydromorphone HCl 1 mg Q4HPRN PRN IV 05/18/25 12:45 05/19/25 11:17 1 MG Examination Patient currently lying on bed, mild distress Constitutional: Lean and thin appearance Eyes: No: Pain, Vision change, Conjunctivae inflammation ENT: No: Ear pain, Ear discharge, Nose pain, Nose discharge Respiratory: No: Cough, Dry, Shortness of breath, SOB with excertion, Wheezing, Hemoptysis Cardiovascular: S1-S2 audible, no murmur, mild edema bilateral leg Gastrointestinal: Abdominal Pain on deep palpation, bowel sounds present Genitourinary: No Dysuria, No Frequency, No Incontinence, Musculoskeletal: No: other, neck pain, shoulder pain, arm pain Skin: No: Rash, Lesions, Jaundice, right IJ in place. Neurological: AO x3, Numbness, Incoordination, Change in speech laboratory and microbiology Laboratory Tests 05/19/25 03:04 Test 05/19/25 03:04 Range/Units Serum Glucose 132 H 74-106 mg/dL Microbiology Date/Time Source Procedure Growth Status 05/15/25 16:46 Nose MRSA Screen - Final Complete 05/15/25 16:39 Voided Urine Urine Culture - Final Complete 05/15/25 10:34 Blood Blood Culture - Preliminary NO GROWTH AFTER 72 HOURS OF INCUBATION. Resulted Problem List/Assessment/Plan Problem List/Assessment/Plan This is a 65-year-old male with past medical history of recurrent small-bowel obstruction and hospitalization, bilateral leg edema came to ER with a complaint of abdominal pain for last 3 months. Patient experienced similar symptoms associated with nausea, vomiting. But last few days patient's symptoms worsen and vomiting and abdominal pain for last 5 days which is worsen day by day. Abdominal pain pain is 8/10, intermittent, spasmodic, no aggravating or relieving factor and associated with loss of appetite, intentional weight loss more than 200 lb last year. Patient took [place] for his left hip pain and bilateral leg pain.During admission, patient blood pressure was low and started Levophed in ER. NEUROLOGY Patient AOx4 RASS-0 CARDIOVASCULAR: Bilateral leg edema * No no cardiac history. * Echocardiogram on 05/16/2025: EF 65%, mild mitral regurgitation * Plan: Furosemide -home meds we will resume accordingly. PULMONARY: Gram-positive/Gram-negative pneumonia Mild pulmonary edema * CT abdomen shows: Left upper lobe pneumonia * CXR; mild pulmonary edema * Lower leg venous Doppler on 06/17/2019: No sonographic evidence for deep venous thrombosis in the right lower extremity deep veins although evaluation was made difficult due to the patient's body habitus. Subcutaneous edema present in the right calf. * Plan: cont. IV antibiotic. GASTROINTESTINAL: Small-bowel obstruction Septic shock ?/distributive shock due to acute bowel obstruction * CT abdomen and pelvis; small bowel obstruction with probable transition point in the lower midline abdomen * NG tube suction * Plan: NPO, IV antibiotic, IVF, NG placement. * Surgical procedure done on 05/17/2025: The mesh was stricture likely consider potential complete small-bowel obstruction, remove the loop of bowel in and do ELLIOTT stapling device anastomosis done without complication. Keep patient NPO, IVF, and NG suction. Monitor labs and vital. Surgery on board. GENITOURINARY: Complicated cystitis NIKKI due to vasomotor nephropathy Hyponatremia Hypokalemia Hypomagnesemia * UA- turbid, LE 1+, bacteria many * Serum creatinine 2.20, unknown baseline * NIKKI resolved * Avoid nephrotoxic drugs * Plan: IVF.urine culture preliminary-no growth HEMATOLOGY: Leukocytosis due to surgical procedure. * Plan: monitor CBC daily. METABOLIC: * Nothing contributory * Plan: THS 1.25, hemoglobin A1c 5.2 INFECTIOUS DISEASE: Sepsis due to acute bowel obstruction Sepsis Gram-positive /Gram-negative pneumonia/UTI * CT scan shows left upper lobe pneumonia * CT abdomen and pelvis shows small bowel obstruction * MRSA nasal screen negative * Blood culture x2, urine culture-negative * Leukocytosis trending down to normal * Plan: Discontinue metronidazole, ceftriaxone and start Zosyn on 05/15/2025. Musculature skeletal and skin * Chronic skin changes bilateral lower extremity likely venous stasis * plan: monitor for skin breakdown. DIET: IVF, NPO DVT prophylax: SCDs GI prophylaxis: Protonix Bowel regimen: On hold Code status: Full code LINES/DRAINS/ACCESS: right IJ IV access: Peripheral IV line Drips: Off Levophed 05/19/2025 Healy catheter: None DISPOSITION: ICU Patient's status discussed with patient , daughter -Karlie over the phone and nurse. Critical care time spent more than 71 minutes, including patient care, chart review. Excluding any procedures. Case discuss with Dr. Lay. Plan discussed with: Patient, Daughter, Other (Nurse) Dietary Evaluation Review Comments: Nutrition Recommendation 1) Consider PN/TPN if NPO > 7 days 2) Advance to soft diet as medically feasible 3) Monitor NPO status/PO intake, lab values, weight trend, and I/O Expected Outcomes/Goals: To meet >75% estimated needs GI symptoms to improve Fu 2-3 days YOJANA MATOS RESIDENT May 19, 2025 13:51
[2025-05-20] VITALS (67 sets, daily range): BP systolic 72–132; BP diastolic 46–82; PULSE 41–107; RESP 0–29; TEMP 97.9–98.2; O2SAT 86–98
[2025-05-20] MEDS: MORPHINE SULFATE 4 MG/ML SYR/VIAL IV PRN (02:40)
[2025-05-20 03:32] LABS: Hematocrit 31.8 % (41.0-53.0); Hemoglobin 11.0 g/dL (13.5-17.5); Mean Corpuscular Hemoglobin 32.9 pg (28.0-32.0); Mean Corpuscular Volume 95.4 fL (80.0-100.0); Nucleated Red Blood Cells % 0.0 %
[2025-05-20 03:40] LABS: Chloride 104 mmol/L (98-107); Potassium 3.8 mmol/L (3.5-5.1); Sodium 140 mmol/L (136-145)
[2025-05-20 03:41] LABS: Anion Gap 7 (5-15); Carbon Dioxide 29 mmol/L (20-31)
[2025-05-20 03:42] LABS: Calcium 8.0 mg/dL (8.7-10.4)
[2025-05-20 03:47] LABS: BUN/Creatinine Ratio 15.6 (10.0-20.0); Blood Urea Nitrogen 10 mg/dL (9-23); Glucose 127 mg/dL (74-106)
--- NOTE | 2025-05-20 12:17 | DVHPNRES ---
Progress Note Date Seen: May 20, 2025 Resident Creating Document: YOJANA MATOS RESIDENT Medical Necessity Reason Pt with a Central, PICC or Fol: Yes The following are medically ne: Central Line (Right IJ) Subjective Review of Systems his is a 65-year-old male with past medical history of recurrent small-bowel obstruction and hospitalization, umbilical hernia repair with mesh 10 years ago, bilateral leg edema came to ER with a complaint of abdominal pain for last 3 months. Patient experienced similar symptoms associated with nausea, vomiting. But last few days patient's symptoms worsen and vomiting and abdominal pain for last 5 days which is worsen day by day. Abdominal pain pain is 8/10, intermittent, spasmodic, no aggravating or relieving factor and associated with loss of appetite, intentional weight loss more than 200 lb last year. Patient took Ellsworth for his left hip pain and bilateral leg pain. During admission, patient blood pressure was low and started Levophed in ER. As per patient, his primary care prescribed him senna 5 tablets per day which is not working. As per sister, patient noncompliant with medical management and left AMA from [facility]. Past medical history: Recurrent small-bowel obstruction without surgical intervention, bilateral leg edema Surgical history: Umbilical hernia repair with mesh 10 years ago Family history: Nothing contributory Social history: Cigarette smoke 1 pack per day for 30 years, denies any illicit drug or EtOH use Allergy: Aspirin PCP:Dr. Timmons Home medication: Nabumetone, Ellsworth, senna, vitamin D3, vitamin B12, baclofen, furosemide. 05/15: Patient seen and evaluated in bedside. Right IJ central line placed. Surgery on board. 05/16: Patient seen and evaluated in bedside. Patient abdomen soft, abdominal pain improving. Passing flatus but no bowel. Surgery on board. 05/17: Patient seen and evaluated today. 350 mL NG tube suction overnight. Surgery on board. Lab shows hyponatremia and hypomagnesemia -supplemented. Patient went for laparoscopic procedure today. 05/18: Seen and evaluated in bedside. POD 1, started Dilaudid instead of morphine. Leukocytosis likely due to postoperative. Continue Levophed due to hypotension. 05/19: Patient seen and evaluated in bedside today. POD2, patient wants to leave hospital and take out NG tube. Discussed patient with noncompliance with the medical management and other adverse effect and poor outcome. Patient verbally agree vertebral discussed. Waiting for surgery opinion. 05/20: Patient seen and evaluated in bedside today. POD 3, patient having bowel movement twice. Abdominal surgical site dry, no bleeding or hematoma. Clear liquid diet advanced to full liquid and advanced as tolerated. Surgery on board. Objective vital signs Vital Sign Date Time Temp Pulse Resp B/P (MAP) Pulse Ox O2 Delivery O2 Flow Rate FiO2 05/20/25 12:10 10 93 Room Air* 0 21 05/20/25 12:10 62 05/20/25 10:10 105/60 05/20/25 04:00 98.0 98.0 Total Intake and Output 05/19/25 05/19/25 05/20/25 15:00 23:00 07:00 Intake Total 811.25 ml 832.5 ml 1319.75 ml Output Total 0 ml 150 ml 451 ml Balance 811.25 ml 682.5 ml 868.75 ml medications Current Medications Medications Dose Ordered Sig/Taiwo Route Start Time Stop Time Status Last Admin Dose Admin Ondansetron HCl 4 mg Q4HP PRN IV 05/14/25 22:15 05/15/25 19:01 4 MG Acetaminophen 650 mg Q6HP PRN PO 05/14/25 22:15 Pantoprazole Sodium 40 mg DAILY IV 05/15/25 10:00 05/19/25 11:16 40 MG Norepinephrine Bitartrate 250 ml @ 3.75 mls/hr Q24H IV 05/15/25 07:15 05/20/25 04:43 15 MLS/HR Piperacillin Sod/ Tazobactam Sod 100 ml @ 25 mls/hr Q8HR IV 05/15/25 22:00 05/20/25 05:51 25 MLS/HR Sodium Chloride 1,000 ml @ 100 mls/hr Q10H IV 05/18/25 12:45 05/20/25 05:51 100 MLS/HR Hydromorphone HCl 1 mg Q4HPRN PRN IV 05/18/25 12:45 05/20/25 09:40 1 MG Morphine Sulfate 2 mg Q4HPRN PRN IV 05/19/25 14:00 05/20/25 02:40 2 MG Examination Patient currently lying on bed, mild distress Constitutional: Lean and thin appearance Eyes: No: Pain, Vision change, Conjunctivae inflammation ENT: No: Ear pain, Ear discharge, Nose pain, Nose discharge Respiratory: No: Cough, Dry, Shortness of breath, SOB with excertion, Wheezing, Hemoptysis Cardiovascular: S1-S2 audible, no murmur, mild edema bilateral leg Gastrointestinal: Abdominal Pain on deep palpation, bowel sounds present, surgical site dry and no discharge or swelling. Genitourinary: No Dysuria, No Frequency, No Incontinence, Musculoskeletal: No: other, neck pain, shoulder pain, arm pain Skin: No: Rash, Lesions, Jaundice, right IJ in place. Neurological: AO x3, Numbness, Incoordination, Change in speech laboratory and microbiology Laboratory Tests 05/20/25 02:43 Test 05/20/25 02:43 Range/Units Serum Glucose 127 H 74-106 mg/dL Microbiology Date/Time Source Procedure Growth Status 05/15/25 16:46 Nose MRSA Screen - Final Complete 05/15/25 16:39 Voided Urine Urine Culture - Final Complete 05/15/25 10:34 Blood Blood Culture - Final NO GROWTH AFTER 5 DAYS OF INCUBATION. Complete Problem List/Assessment/Plan Problem List/Assessment/Plan This is a 65-year-old male with past medical history of recurrent small-bowel obstruction and hospitalization, bilateral leg edema came to ER with a complaint of abdominal pain for last 3 months. Patient experienced similar symptoms associated with nausea, vomiting. But last few days patient's symptoms worsen and vomiting and abdominal pain for last 5 days which is worsen day by day. Abdominal pain pain is 8/10, intermittent, spasmodic, no aggravating or relieving factor and associated with loss of appetite, intentional weight loss more than 200 lb last year. Patient took Ellsworth for his left hip pain and bilateral leg pain.During admission, patient blood pressure was low and started Levophed in ER. NEUROLOGY Patient AOx4 RASS-0 CARDIOVASCULAR: Bilateral leg edema * No no cardiac history. * Echocardiogram on 05/16/2025: EF 65%, mild mitral regurgitation * Plan: Furosemide -home meds we will resume accordingly. PULMONARY: Gram-positive/Gram-negative pneumonia Mild pulmonary edema * CT abdomen shows: Left upper lobe pneumonia * CXR; mild pulmonary edema * Lower leg venous Doppler on 06/17/2019: No sonographic evidence for deep venous thrombosis in the right lower extremity deep veins although evaluation was made difficult due to the patient's body habitus. Subcutaneous edema present in the right calf. * Plan: cont. IV antibiotic. GASTROINTESTINAL: Small-bowel obstruction Septic shock ?/distributive shock due to acute bowel obstruction * CT abdomen and pelvis; small bowel obstruction with probable transition point in the lower midline abdomen * NG tube suction * Plan: NPO, IV antibiotic, IVF, NG placement. * Surgical procedure done on 05/17/2025: The mesh was stricture likely consider potential complete small-bowel obstruction, remove the loop of bowel in and do ELLIOTT stapling device anastomosis done without complication. Clear liquid diet advanced to full liquid diet and advanced as tolerated. Surgery on board. GENITOURINARY: Complicated cystitis NIKKI due to vasomotor nephropathy Hyponatremia Hypokalemia Hypomagnesemia Hypocalcemia * UA- turbid, LE 1+, bacteria many * Serum creatinine 2.20, unknown baseline * NIKKI resolved * Avoid nephrotoxic drugs * Plan: IVF.urine culture preliminary-no growth HEMATOLOGY: Leukocytosis due to surgical procedure. * Plan: monitor CBC daily. METABOLIC: * Nothing contributory * Plan: THS 1.25, hemoglobin A1c 5.2 INFECTIOUS DISEASE: Sepsis due to acute bowel obstruction Sepsis Gram-positive /Gram-negative pneumonia/UTI * CT scan shows left upper lobe pneumonia * CT abdomen and pelvis shows small bowel obstruction * MRSA nasal screen negative * Blood culture x2, urine culture-negative * Leukocytosis trending down to normal * Plan: Discontinue metronidazole, ceftriaxone and start Zosyn on 05/15/2025. Musculature skeletal and skin * Chronic skin changes bilateral lower extremity likely venous stasis * plan: monitor for skin breakdown. DIET: Clear liquid diet advanced to full liquid DVT prophylax: SCDs GI prophylaxis: Protonix Bowel regimen: None Code status: Full code LINES/DRAINS/ACCESS: right IJ IV access: Peripheral IV line Drips: Off Levophed 05/19/2025 Healy catheter: None DISPOSITION: Downgrade to Telemetry. Patient's status discussed with patient , daughter -Karlie over the phone. Critical care time spent more than 57 minutes, including patient care, chart review. Excluding any procedures. Case discuss with Dr. Lay. Plan discussed with: Patient, Daughter, Other (Nurse) My Orders My Orders Orders - YOJANA MATOS RESIDENT Procedure Category Date Status Time Transfer Orders XFER 05/19/25 Transmitted 15:03 Full Liq Diet DIET 05/20/25 Transmitted Lunch Dietary Evaluation Review Comments: Nutrition Recommendation 1) Consider PN/TPN if NPO > 7 days 2) Advance to soft diet as medically feasible 3) Monitor NPO status/PO intake, lab values, weight trend, and I/O Expected Outcomes/Goals: To meet >75% estimated needs GI symptoms to improve Fu 2-3 days YOJANA MATOS RESIDENT May 20, 2025 12:17
--- NOTE | 2025-05-20 22:09 | DVHPN2 ---
Progress Note Date Seen: May 20, 2025 Medical Necessity Reason Pt with a Central, PICC or Fol: Yes The following are medically ne: Central Line (Right IJ) Objective vital signs Vital Sign Date Time Temp Pulse Resp B/P (MAP) Pulse Ox O2 Delivery O2 Flow Rate FiO2 05/20/25 18:42 82 16 102/63 05/20/25 18:00 93 05/20/25 17:31 Room Air* 0 21 05/20/25 17:00 98.0 98.0 Total Intake and Output 05/19/25 05/19/25 05/20/25 15:00 23:00 07:00 Intake Total 811.25 ml 832.5 ml 1319.75 ml Output Total 0 ml 150 ml 451 ml Balance 811.25 ml 682.5 ml 868.75 ml medications Current Medications Medications Dose Ordered Sig/Taiwo Route Start Time Stop Time Status Last Admin Dose Admin Ondansetron HCl 4 mg Q4HP PRN IV 05/14/25 22:15 05/15/25 19:01 4 MG Acetaminophen 650 mg Q6HP PRN PO 05/14/25 22:15 Pantoprazole Sodium 40 mg DAILY IV 05/15/25 10:00 05/20/25 13:54 40 MG Norepinephrine Bitartrate 250 ml @ 3.75 mls/hr Q24H IV 05/15/25 07:15 05/20/25 04:43 15 MLS/HR Piperacillin Sod/ Tazobactam Sod 100 ml @ 25 mls/hr Q8HR IV 05/15/25 22:00 05/20/25 13:54 25 MLS/HR Sodium Chloride 1,000 ml @ 100 mls/hr Q10H IV 05/18/25 12:45 05/20/25 13:55 100 MLS/HR Hydromorphone HCl 1 mg Q4HPRN PRN IV 05/18/25 12:45 05/20/25 18:42 1 MG Morphine Sulfate 2 mg Q4HPRN PRN IV 05/19/25 14:00 05/20/25 02:40 2 MG laboratory and microbiology Laboratory Tests 05/20/25 02:43 Test 05/20/25 02:43 Range/Units Serum Glucose 127 H 74-106 mg/dL Microbiology Date/Time Source Procedure Growth Status 05/15/25 16:46 Nose MRSA Screen - Final Complete 05/15/25 16:39 Voided Urine Urine Culture - Final Complete 05/15/25 10:34 Blood Blood Culture - Final NO GROWTH AFTER 5 DAYS OF INCUBATION. Complete Problem List/Assessment/Plan Problem List/Assessment/Plan AFEBRILE HEMODYNAMICALLY STABLE ABD SOFT LESS DISTENDED LESS TENDER NO REBOUND WBC TRENDING DOWN BM +FLATUS + NG REMOVED ALOOW CLEAR LIQUIDS NURSE AT BEDSIDE Plan discussed with: Patient My Orders My Orders Orders - MIESHA SCHULTZ MD Procedure Category Date Status Time Communication Order ORDERS 05/20/25 Transmitted 15:21 Dietary Evaluation Review Comments: Nutrition Recommendation 1) Consider PN/TPN if NPO > 7 days 2) Advance to soft diet as medically feasible 3) Monitor NPO status/PO intake, lab values, weight trend, and I/O Expected Outcomes/Goals: To meet >75% estimated needs GI symptoms to improve Fu 2-3 days MIESHA SCHULTZ MD May 20, 2025 22:09
[2025-05-21] VITALS (17 sets, daily range): BP systolic 82–111; BP diastolic 48–72; PULSE 44–73; RESP 11–22; TEMP 97.7–98.1; O2SAT 93–100
[2025-05-21 04:01] LABS: Chloride 103 mmol/L (98-107); Potassium 3.9 mmol/L (3.5-5.1); Sodium 138 mmol/L (136-145)
[2025-05-21 04:02] LABS: Anion Gap 6 (5-15); Carbon Dioxide 29 mmol/L (20-31)
[2025-05-21 04:03] LABS: Hematocrit 31.3 % (41.0-53.0); Hemoglobin 10.7 g/dL (13.5-17.5); Mean Corpuscular Hemoglobin 32.4 pg (28.0-32.0); Mean Corpuscular Volume 95.0 fL (80.0-100.0); Nucleated Red Blood Cells % 0.0 %
[2025-05-21 04:07] LABS: BUN/Creatinine Ratio 12.1 (10.0-20.0)
[2025-05-21 05:03] LABS: Blood Urea Nitrogen 7 mg/dL (9-23); Calcium 8.1 mg/dL (8.7-10.4); Glucose 114 mg/dL (74-106)
--- NOTE | 2025-05-21 09:43 | DVHPN2 ---
Progress Note Date Seen: May 21, 2025 Medical Necessity Reason Pt with a Central, PICC or Fol: Yes The following are medically ne: Central Line (Right IJ) Objective vital signs Vital Sign Date Time Temp Pulse Resp B/P (MAP) Pulse Ox O2 Delivery O2 Flow Rate FiO2 05/21/25 07:01 63 16 91/52 (65) 98 05/21/25 06:00 Room Air* 0 21 05/21/25 04:02 98.0 98.0 Total Intake and Output 05/20/25 05/20/25 05/21/25 15:00 23:00 07:00 Intake Total 800 ml 825 ml 1500 ml Output Total 0 ml 100 ml 201 ml Balance 800 ml 725 ml 1299 ml medications Current Medications Medications Dose Ordered Sig/Taiwo Route Start Time Stop Time Status Last Admin Dose Admin Ondansetron HCl 4 mg Q4HP PRN IV 05/14/25 22:15 05/15/25 19:01 4 MG Acetaminophen 650 mg Q6HP PRN PO 05/14/25 22:15 Pantoprazole Sodium 40 mg DAILY IV 05/15/25 10:00 05/20/25 13:54 40 MG Norepinephrine Bitartrate 250 ml @ 3.75 mls/hr Q24H IV 05/15/25 07:15 05/20/25 04:43 15 MLS/HR Piperacillin Sod/ Tazobactam Sod 100 ml @ 25 mls/hr Q8HR IV 05/15/25 22:00 05/21/25 06:17 25 MLS/HR Sodium Chloride 1,000 ml @ 100 mls/hr Q10H IV 05/18/25 12:45 05/20/25 13:55 100 MLS/HR Hydromorphone HCl 1 mg Q4HPRN PRN IV 05/18/25 12:45 05/21/25 03:37 1 MG Morphine Sulfate 2 mg Q4HPRN PRN IV 05/19/25 14:00 05/20/25 02:40 2 MG laboratory and microbiology Laboratory Tests 05/21/25 03:20 Test 05/21/25 03:20 Range/Units Serum Glucose 114 H 74-106 mg/dL Microbiology Date/Time Source Procedure Growth Status 05/15/25 16:46 Nose MRSA Screen - Final Complete 05/15/25 16:39 Voided Urine Urine Culture - Final Complete 05/15/25 10:34 Blood Blood Culture - Final NO GROWTH AFTER 5 DAYS OF INCUBATION. Complete Problem List/Assessment/Plan Problem List/Assessment/Plan AFEBRILE HEMODYNAMICALLY STABLE ABD SOFT LESS DISTENDED LESS TENDER NO REBOUND WBC TRENDING DOWN BM +FLATUS + MILAGROS FULL LIQUIDS ADVANCE DIET MILAGROS DOWNGRADE TO TELE NURSE AT BEDSIDE Plan discussed with: Other My Orders My Orders Orders - MIESHA SCHULTZ MD Procedure Category Date Status Time Communication Order ORDERS 05/20/25 Transmitted 15:21 Mechanical Soft Diet DIET 05/21/25 Transmitted Lunch Dietary Evaluation Review Comments: Nutrition Recommendation 1) Consider PN/TPN if NPO > 7 days 2) Advance to soft diet as medically feasible 3) Monitor NPO status/PO intake, lab values, weight trend, and I/O Expected Outcomes/Goals: To meet >75% estimated needs GI symptoms to improve Fu 2-3 days MIESHA SCHULTZ MD May 21, 2025 09:43
[2025-05-21] MEDS: ACETAMINOPHEN 325 MG TAB PO PRN (09:50)
--- NOTE | 2025-05-21 11:45 | DVHDSRES ---
Discharge Summary Date of Admission Resident Creating Document: YOJANA MATOS RESIDENT May 14, 2025 at 23:22 Date of Discharge: May 21, 2025 Labs/Diagnostic Data: Laboratory Results Test 05/21/25 03:20 05/18/25 02:45 05/17/25 15:00 05/16/25 05:07 White Blood Count 12.4 10^3/uL (4.4-10.8) Red Blood Count 3.29 10^6/uL (4.5-5.90) Hemoglobin 10.7 g/dL (13.5-17.5) Hematocrit 31.3 % (41.0-53.0) Mean Corpuscular Volume 95.0 fL (80.0-100.0) Mean Corpuscular Hemoglobin 32.4 pg (28.0-32.0) Mean Corpuscular Hemoglobin Concent 34.1 g/dL (32.0-36.0) Red Cell Distribution Width 12.7 % (11.8-14.3) Platelet Count 326 10^3/uL (140-450) Mean Platelet Volume 7.0 fL (6.9-10.8) Neutrophils (%) (Auto) 82.3 % (37.0-80.0) Lymphocytes (%) (Auto) 9.7 % (10.0-50.0) Monocytes (%) (Auto) 7.0 % (0.0-12.0) Eosinophils (%) (Auto) 0.5 % (0.0-7.0) Basophils (%) (Auto) 0.5 % (0.0-2.0) Neutrophils # (Auto) 10.2 10 ^3/uL (1.6-8.6) Lymphocytes # (Auto) 1.2 10 ^3/uL (0.4-5.4) Monocytes # (Auto) 0.9 10 ^3/uL (0-1.3) Eosinophils # (Auto) 0.1 10 ^3/uL (0-0.8) Basophils # (Auto) 0.1 10 ^3/uL (0-0.2) Nucleated Red Blood Cells 0.0 % Sodium Level 138 mmol/L (136-145) Potassium Level 3.9 mmol/L (3.5-5.1) Chloride Level 103 mmol/L (98-107) Carbon Dioxide Level 29 mmol/L (20-31) Anion Gap 6 (5-15) Blood Urea Nitrogen 7 mg/dL (9-23) Creatinine 0.58 mg/dL (0.700-1.30) Glomerular Filtration Rate Calc 109 mL/min (>90) BUN/Creatinine Ratio 12.1 (10.0-20.0) Serum Glucose 114 mg/dL (74-106) Calcium Level 8.1 mg/dL (8.7-10.4) Differential Total Cells Counted 100.0 (100) Neutrophils % (Manual) 83 (37.0-80.0) Band Neutrophils % (Manual) 11 Lymphocytes % (Manual) 2 (10.0-50.0) Monocytes % (Manual) 4 (0-12) Eosinophils % (Manual) 0 (0-7) Basophils % (Manual) 0 (0.0-2.0) Metamyelocytes % (manual) 0 Myelocytes % (Manual) 0 Promyelocytes % (Manual) 0 Blast Cells % (Manual) 0 Reactive Lymphocytes 0 Platelet Estimate Increased Magnesium Level 1.8 mg/dL (1.6-2.6) Prothrombin Time 10.8 sec (9.3-11.8) Prothrombin Time INR 1.02 (0.9-1.15) Total Bilirubin 0.3 mg/dL (0.2-1.0) Aspartate Amino Transferase (AST) 12 U/L (13-40) Alanine Aminotransferase (ALT) 13 U/L (7-40) Alkaline Phosphatase 60 U/L (46-116) Total Protein 6.0 g/dL (5.7-8.2) Albumin 3.7 g/dL (3.2-4.8) Test 05/15/25 11:39 05/15/25 10:34 Urine Color Yellow (Yellow) Urine Clarity Turbid (Clear) Urine pH 5.0 (5.0-9.0) Urine Specific [place] 1.024 (1.001-1.035) Urine Protein Trace (Negative) Urine Ketones 1+ (Negative) Urine Blood Negative /uL (Negative) Urine Nitrite Negative (Negative) Urine Bilirubin 1+ (Negative) Urine Urobilinogen Normal mg/dL (Negative) Urine Leukocyte Esterase 1+ /uL (Negative) Urine RBC 2 /hpf (0 - 3) Urine Microscopic WBC 7 /HPF (0-3) Urine Squamous Epithelial Cells Few /hpf (<5) Urine Bacteria Many /hpf (None Seen) Urine Hyaline Casts Many /lpf (0 - 2) Urine Mucus Few (None Seen) Urine Glucose Normal mg/dL (Normal) Urine Opiates Screen Pos (NEGATIVE) Urine Fentanyl Screen Neg (NEGATIVE) Urine Barbiturates Screen Neg (NEGATIVE) Urine Phencyclidine Screen Neg (NEGATIVE) Urine Amphetamines Screen Neg (NEGATIVE) Urine Benzodiazepines Screen Neg (NEGATIVE) Urine Cocaine Screen Neg (NEGATIVE) Urine Cannabinoids Screen Neg (NEGATIVE) Activated Partial Thromboplast Time 28.0 SEC (24.5-34.5) Hemoglobin A1c 5.2 % A1C (<5.7) Lactic Acid Level 0.9 mmol/L (0.4-2.0) Vitamin B12 Level 3373 pg/mL (211-911) Vitamin D 25-Hydroxy 74.3 ng/mL (30.0-100) Thyroid Stimulating Hormone (TSH) 1.25 uIU/mL (0.55-4.78) Other Laboratory Tests 05/21/25 03:20 Brief Hx & Hospital Course: HISTORY OF PRESENT ILLNESS: This is a 65-year-old male with a history of recurrent small bowel obstruction (SBO), umbilical hernia repair with mesh 10 years ago, and bilateral leg edema, who presented with worsening abdominal pain, nausea, and vomiting over 5 days, on a background of chronic symptoms and significant weight loss (>200 lbs in the past year). HOSPITAL COURSE: On admission, he was hypotensive requiring Levophed, and imaging revealed SBO with a transition point in the lower midline abdomen and left upper lobe pneumonia. He underwent exploratory laparotomy with extensive lysis of adhesions, removal of hernia mesh, small bowel resection, and primary anastomosis on 05/17/2025. Postoperatively, he was managed with IV antibiotics (Zosyn), electrolyte repletion, and pain control with Dilaudid. He had return of bowel function by POD 3, tolerated advancement of diet from clear liquids to full liquids and then to regular diet without issues, and his leukocytosis and NIKKI resolved. He remained hemodynamically stable, afebrile, and alert with a clean, dry surgical site. The patient was evaluated by the surgical team on 05/21/2025 and was cleared for discharge in stable condition with instructions to follow up with surgery and his PCP, resume home medications as appropriate, and monitor for signs of infection or complications. DISCHARGE PLAN: Augmentin b.i.d. for 5 days Continue home meds Follow up with the PCP within 1 week of the discharge. Follow up with the surgery on outpatient basis within 2 weeks FINAL DIAGNOSIS: Gram-positive/Gram-negative pneumonia Small-bowel obstruction Septic shock ?/distributive shock due to acute bowel obstruction/SEPSIS GENITOURINARY: Complicated UTI NIKKI due to vasomotor nephropathy Hyponatremia Hypokalemia Hypomagnesemia Hypocalcemia Sepsis Gram-positive /Gram-negative pneumonia/UTI Chronic skin changes bilateral lower extremity likely venous stasis Ruled out pulmonary edema Condition at Discharge: Good Final Diagnosis/Problems List small bowel obstruction Discharge Disposition: Home Discharge Instruct/Medications Diet: Regular Activity: Light activity Follow Up/Referral: Follow up with PCP within one week after discharge. follow up with surgery within 2 weeks after discharge. Medications: Tylenol 4 times a day, as need for pain, over the counter. continue home meds Scheduled Amoxicillin & Pot Clavulanate (Augmentin Tablet), 875 MG PO BID Discharge Statement: "Patient was advised to return to the ER or call 911 if any headaches, dizziness, shortness of breath, chest pain, abdominal pain, bleeding, fevers, or worsening of medical condition. Patient was counseled about treatment plan, medications, possible side effects, patientverbalized understanding. All questions were answered to the best of my ability. This discharge took greater then 30 minutes in planning, reviewing documentation, counseling the patient, and discussing with other team members." ASSESSMENT ASSESSMENT Assessment small bowel obstruction SHANNAN SARABIA [facility] May 21, 2025 11:45
[2025-05-21] MEDS ORDERED: AUG875T PO (12:17)
--- NOTE | 2025-05-25 07:48 | ECG ---
[facility] Test Date: 2025-05-15 Test Time: 04:00:53 Pat Name: CLAUDIA CONNORS Department: [facility] ED Patient ID: [facility]-[id number] Room: [address] [place] [address] A Gender: M Pipeline Welder: : 1960 Requested By: FERNANDA SHEN Order Number: [id number] Reading MD: Fili Prajapati Measurements Intervals [place] Rate: 57 P: 38 OK: 164 QRS: 93 QRSD: 118 T: 83 QT: 470 QTc: 458 Interpretive Statements Sinus rhythm Nonspecific intraventricular conduction delay Minimal ST elevation, inferior leads Electronically Signed On 05-27-2025 17:51:27 PDT by Fili Prajapati Please click the below link to view image of tracing.
== END 2025-05-21 14:52 | disposition home or self-care (01) | DRG 710 ==
LOC: ER 17:20 → OVERFLOW 23:22 → ICU WEST 05-15 15:38
PROVIDERS: ADMIT Internal Medicine Pulmonary Disease; ATTEND Internal Medicine Pulmonary Disease
PROC: 0DB80ZZ Excision of Small Intestine, Open Approach (ICD-10-PCS; 2025-05-17)
PROC: 0WPF0JZ Removal of Synthetic Substitute from Abdominal Wall, Open Approach (ICD-10-PCS; 2025-05-17)
PROC: 0DN80ZZ Release Small Intestine, Open Approach (ICD-10-PCS; 2025-05-17)
PROC: 0D9670Z Drainage of Stomach with Drainage Device, Via Natural or Artificial Opening (ICD-10-PCS; principal; 2025-05-17 16:02)
DX: A41.9 Sepsis, unspecified organism (principal); R65.21 Severe sepsis with septic shock; N17.0 Acute kidney failure with tubular necrosis; R57.8 Other shock; J15.69 Pneumonia due to other Gram-negative bacteria; K56.50 Intestinal adhesions [bands], unspecified as to partial versus complete obstruction; J15.9 Unspecified bacterial pneumonia; R62.7 Adult failure to thrive; E87.1 Hypo-osmolality and hyponatremia; E86.0 Dehydration; F17.210 Nicotine dependence, cigarettes, uncomplicated; N30.90 Cystitis, unspecified without hematuria; E87.6 Hypokalemia; E83.42 Hypomagnesemia; E83.51 Hypocalcemia; Z88.6 Allergy status to analgesic agent; Z68.23 Body mass index [BMI] 23.0-23.9, adult
CPT/HCPCS: 36415; 71045; 74018; 74176; 74250; 80048; 80053; 80307; 81001; 82306; 82607; 83036; 83605; 83735; 84443; 85007; 85025; 85027; 85610; 85730; 86850; 86900; 86901; 87040; 87081; 87086; 93005; 93306; G0378; J0131; J0690; J0696; J2003; J2250; J2405; J2470; J2543; J3480; J3490